=== PATIENT | female | born 1990 | race Caucasian/White ===

== ENCOUNTER → 2016-10-22 | Outpatient (CLI) | payer OTHER ==
[~2016-10-22] MED LIST: DICL75TA PO; HYDR25T PO; MEDR1VL IM; METH-107 PO; PERCOCET PO; PSEUDOGEST PO; TIZA4CAP3 PO; TYLE325T5 PO; [UNRECOGNIZED DRUG - CODE] PO
[2016-10-22 10:18] LABS: INR 0.99
[2016-10-22 10:26] LABS: MEAN CORPUSCULAR HEMOGLOBIN 30.7 pg (27.0-33.0); MEAN CORPUSCULAR HGB CONC 33.1 g/dl (32.0-36.5); MEAN CORPUSCULAR VOLUME 92.6 fl (80.0-96.0); RED CELL DISTRIBUTION WIDTH 13.2 % (11.5-14.5); WHITE BLOOD COUNT 5.6 K/mm3 (4.0-10.0)
[2016-10-22 10:28] LABS: ALBUMIN 4.2 GM/DL (3.2-5.2); ALBUMIN/GLOBULIN RATIO 1.27 (1.00-1.93); ALKALINE PHOSPHATASE 51 U/L (45-117); ALT/SGPT 16 U/L (12-78); ANION GAP 6 MEQ/L (8-16); AST/SGOT 12 U/L (15-37); BILIRUBIN,DIRECT 0.2 MG/DL (0.0-0.2); BILIRUBIN,TOTAL 0.7 MG/DL (0.2-1.0); BLOOD UREA NITROGEN 15 MG/DL (7-18); CALCIUM LEVEL 9.6 MG/DL (8.5-10.1); CARBON DIOXIDE LEVEL 27 MEQ/L (21-32); CHLORIDE LEVEL 106 MEQ/L (98-107); CREATININE FOR GFR 0.71 MG/DL (0.55-1.02); GLOMERULAR FILTRATION RATE > 60.0 (>60); GLUCOSE, FASTING 121 MG/DL (70-105); POTASSIUM SERUM 4.7 MEQ/L (3.5-5.1); SODIUM LEVEL 139 MEQ/L (136-145); TOTAL PROTEIN 7.5 GM/DL (6.4-8.2)
== END ==
LOC: M LAB 08:58
PROVIDERS: ATTEND Family Medicine
DX: R23.8 Other skin changes (principal); R42 Dizziness and giddiness

== ENCOUNTER 2016-11-06 21:33 | Emergency (ER) | payer OTHER, MEDICAID ==
[~2016-11-06] VITALS: Ht 167.6 cm; Wt 52.2 kg
[2016-11-06 21:35] VITALS: BP 132/79
[2016-11-06] MEDS ORDERED: GENTAMICIN 0.3% OPHTH SOL 5 ML BTL OS ONE (22:30)
== END 2016-11-06 22:46 | disposition home or self-care (01) ==
LOC: M ED 22:42
DX: H10.9 Unspecified conjunctivitis (principal); Z87.891 Personal history of nicotine dependence

== ENCOUNTER → 2017-02-05 | Outpatient (REF) | payer OTHER, MEDICAID ==
[~2017-02-05] MED LIST changes: +BUSP1TAB PO; +HYDR-3363 PO; -HYDR25T PO; -METH-107 PO; +METH1TAB40 PO; +NORCOTAB PO; +ROBA500T PO
== END ==
LOC: M SFHCPLAZ 17:57
PROVIDERS: ATTEND Family Medicine
DX: R30.0 Dysuria (principal)

== ENCOUNTER 2017-03-05 08:57 | Emergency (ER) | payer MEDICAID, OTHER ==
[~2017-03-05] VITALS: Ht 167.6 cm; Wt 114.0 kg
[~2017-03-05 08:57] MED LIST changes: -BUSP1TAB PO; -NORCOTAB PO; -ROBA500T PO
[2017-03-05 08:58] VITALS: BP 112/77
[2017-03-05] MEDS ORDERED: BUSP1TAB PO (09:05)
[2017-03-05] MEDS ORDERED: KETOROLAC 60 MG/2 ML VIAL (J1885) IM ONE (09:30)
[2017-03-05] MEDS ORDERED: predniSONE 20 MG TAB PO ONE (09:30)
[2017-03-05] MEDS ORDERED: NORCOTAB PO (09:33)
[2017-03-05] MEDS ORDERED: ROBA500T PO (09:33)
== END 2017-03-05 09:57 | disposition home or self-care (01) ==
LOC: M ED 08:57
DX: M54.17 Radiculopathy, lumbosacral region (principal); M54.41 Lumbago with sciatica, right side; M51.36 Other intervertebral disc degeneration, lumbar region; F41.9 Anxiety disorder, unspecified; Z79.899 Other long term (current) drug therapy
CPT/HCPCS: 96372; 99282; J1885

== ENCOUNTER → 2017-03-25 | Outpatient (CLI) | payer OTHER ==
[~2017-03-25] MED LIST changes: +BUSP1TAB PO; +NORCOTAB PO; +ROBA500T PO
[2017-03-25 18:29] LABS: ANION GAP 7 MEQ/L (8-16); BLOOD UREA NITROGEN 13 MG/DL (7-18); CALCIUM LEVEL 9.8 MG/DL (8.5-10.1); CARBON DIOXIDE LEVEL 27 MEQ/L (21-32); CHLORIDE LEVEL 107 MEQ/L (98-107); CREATININE FOR GFR 0.82 MG/DL (0.55-1.02); GLOMERULAR FILTRATION RATE > 60.0 (>60); GLUCOSE, FASTING 88 MG/DL (70-105); POTASSIUM SERUM 4.3 MEQ/L (3.5-5.1); SODIUM LEVEL 141 MEQ/L (136-145)
[2017-03-25 19:00] LABS: BASO # 0.1 K/mm3 (0.0-0.2); BASO % 0.7 % (0.0-1.0); EOS # 0.1 K/mm3 (0.0-0.50); EOS % 0.9 % (0.0-3.0); LARGE UNSTAINED CELL # 0.1 K/mm3 (0.0-0.4); LARGE UNSTAINED CELL % 1.6 % (0.0-4.0); LYMPH % 24.1 % (24.0-44.0); MEAN CORPUSCULAR HEMOGLOBIN 31.7 pg (27.0-33.0); MEAN CORPUSCULAR HGB CONC 34.2 g/dl (32.0-36.5); MEAN CORPUSCULAR VOLUME 92.8 fl (80.0-96.0); MONO # 0.3 K/mm3 (0.0-0.8); MONO % 4.4 % (0.0-5.0); NEUTROPHILS # 5.2 K/mm3 (1.8-7.7); NEUTROPHILS % 68.2 % (36.0-66.0); PLATELET COUNT, AUTOMATED 141 k/mm3 (150-450); RED CELL DISTRIBUTION WIDTH 13.5 % (11.5-14.5); WHITE BLOOD COUNT 7.6 K/mm3 (4.0-10.0)
--- NOTE | 2017-03-26 14:57 | REP ---
CT ABDOMEN AND PELVIS WITHOUT IV CONTRAST: CT abdomen and pelvis performed without oral or IV contrast. Sagittal and coronal reconstruction images are performed. Comparison made with prior studies from 2015. Visualized lung bases are clear. The liver, spleen, adrenals, pancreas, and kidneys are unremarkable in appearance. No renal or ureteral calculus is seen and there is no hydroureteronephrosis. Patient has had a prior cholecystectomy. There is no definite biliary dilatation. There is no abdominal aortic aneurysm. There is no adenopathy. I see no free air or free fluid. I see no bowel wall thickening. There is no evidence of appendicitis. Patient has had a prior hysterectomy. Urinary bladder is not distended and not evaluated. There does appear to be a rounded somewhat cystic structure in the right adnexal region which may represent a right ovarian cyst. Maximum diameter is 4.5 cm. IMPRESSION: No renal or ureteral calculus and no hydroureteronephrosis. No evidence of appendicitis. No evidence of free air or free fluid. Possible right ovarian cyst with a maximum diameter of 4.5 cm. This could be further evaluated with a pelvic ultrasound. Signed by Edgar Kilpatrick MD 03/26/2017 04:01 P
== END ==
LOC: M LAB 15:49
PROVIDERS: ATTEND Student in an Organized Health Care Education/Training Program
DX: R10.9 Unspecified abdominal pain (principal); R82.90 Unspecified abnormal findings in urine

== ENCOUNTER 2017-09-19 03:45 | Emergency (ER) | payer OTHER, MEDICAID, SELFPAY | END 2017-09-19 08:02 | disposition left against medical advice (07) | LOC: M ED 03:45 | DX: Z53.29 Procedure and treatment not carried out because of patient's decision for other reasons (principal) ==

== ENCOUNTER → 2018-02-16 | Outpatient (REF) | payer OTHER ==
[2018-02-16 18:49] LABS: HEMATOCRIT 40.2 % (36.0-47.0); HEMOGLOBIN 13.3 g/dl (12.0-15.5); MEAN CORPUSCULAR HEMOGLOBIN 30.6 pg (27.0-33.0); MEAN CORPUSCULAR HGB CONC 33.1 g/dl (32.0-36.5); MEAN CORPUSCULAR VOLUME 92.4 fl (80.0-96.0); PLATELET COUNT, AUTOMATED 178 10^3/uL (150-450); RED BLOOD COUNT 4.35 10^6/uL (4.00-5.40); RED CELL DISTRIBUTION WIDTH 13.5 % (11.5-14.5); WHITE BLOOD COUNT 7.5 10^3/uL (4.0-10.0)
== END ==
LOC: M SFHCPLAZ 15:53
DX: R06.02 Shortness of breath (principal)
CPT/HCPCS: 85027

== ENCOUNTER → 2018-05-11 | Outpatient (REF) | payer OTHER | LOC: M SFHCPLAZ 17:24 | DX: N39.0 Urinary tract infection, site not specified (principal) | CPT/HCPCS: 87186 ==

== ENCOUNTER → 2018-06-09 | Outpatient (CLI) | payer OTHER | LOC: M WHC 08:30 | DX: R10.2 Pelvic and perineal pain (principal) | CPT/HCPCS: 76830 ==

== ENCOUNTER 2018-09-30 09:28 | Day surgery (SDC) | payer OTHER ==
[~2018-09-30] VITALS: Ht 167.6 cm; Wt 58.2 kg
[~2018-09-30 09:28] MED LIST changes: +ALLE1TAB PO; +CITA-231 PO; +TIZA4CAP PO; -TIZA4CAP3 PO; -[UNRECOGNIZED DRUG - CODE] PO
[2018-09-30] MEDS ORDERED: MIDAZOLAM INJ 2 MG/2 ML VIAL (J2250) As Ordered ONE (09:56)
[2018-09-30] MEDS ORDERED: ROCURONIUM BROMIDE 50 MG/5 ML VIAL As Ordered ONE (09:56)
[2018-09-30] MEDS ORDERED: fentaNYL 100 MCG/2 ML INJECTION (J3010) As Ordered ONE ×2 (09:56→11:39)
[2018-09-30] MEDS ORDERED: LIDOCAINE 2% INJ 100 MG/5 ML SDV (FOR ANES.) As Ordered ONE (09:56)
[2018-09-30] MEDS ORDERED: PROPOFOL 200 MG/20 ML VIAL As Ordered ONE (09:56)
[2018-09-30 10:11] LABS: HEMOGLOBIN 13.6 g/dl (12.0-15.5); MEAN CORPUSCULAR HEMOGLOBIN 30.9 pg (27.0-33.0); MEAN CORPUSCULAR HGB CONC 32.4 g/dl (32.0-36.5); MEAN CORPUSCULAR VOLUME 95.5 fl (80.0-96.0); PLATELET COUNT, AUTOMATED 176 10^3/uL (150-450)
[2018-09-30] MEDS ORDERED: LR 1,000 ML IV ONE (10:15)
[2018-09-30] MEDS ORDERED: BUPIVACAINE HCL 0.25% 30 ML VIAL As Ordered ONE (10:45)
[2018-09-30] MEDS ORDERED: PERC5TAB12 PO (10:50)
[2018-09-30] MEDS ORDERED: IBUP80TA PO (10:51)
[2018-09-30] MEDS ORDERED: dexameTHASONE 4 MG/ML 1ML VIAL (J1100) As Ordered ONE (11:10)
[2018-09-30] MEDS ORDERED: METOCLOPRAMIDE INJ 10MG/2ML VIAL (J2765) As Ordered ONE (11:36)
[2018-09-30] MEDS ORDERED: ONDANSETRON 4MG/2ML VIAL (J2405) As Ordered ONE (11:37)
[2018-09-30] MEDS ORDERED: KETOROLAC 60 MG/2 ML VIAL (J1885) As Ordered ONE (11:37)
[2018-09-30] MEDS ORDERED: SUGAMMADEX SODIUM 500 MG/5 ML VIAL (BRIDION) As Ordered ONE (11:41)
[2018-09-30] MEDS ORDERED: MEPERIDINE INJ 25 MG/ML VIAL (J2175) As Ordered ONE (12:14)
[2018-09-30] MEDS ORDERED: PERCOCET 5MG/325MG TAB PO PRN (12:15)
[2018-09-30] MEDS ORDERED: LR 1,000 ML IV SCH (12:15)
[2018-09-30] MEDS ORDERED: ONDANSETRON 4MG/2ML VIAL (J2405) IV PRN (12:15)
[2018-09-30] MEDS ORDERED: fentaNYL 100 MCG/2 ML INJECTION (J3010) IV PRN (12:15)
[2018-09-30] MEDS ORDERED: NORCO, ANEXSIA 5/325MG TABLET (HYDROcodone/ACETAMINOPHEN) PO PRN (12:15)
[2018-09-30] MEDS ORDERED: MEPERIDINE INJ 25 MG/ML VIAL (J2175) IV PRN (12:30)
[2018-09-30 13:02] VITALS: BP 109/59
--- NOTE | 2018-09-30 15:21 | RO ---
DATE OF PROCEDURE: 09/30/2018 PREPROCEDURE DIAGNOSIS: Pelvic pain. History of ovarian cysts. POSTPROCEDURE DIAGNOSIS: Pelvic pain. History of ovarian cysts. PROCEDURE: Laparoscopic right salpingo-oophorectomy. SURGEON: Thomas Schilling MD AQUATICS DIRECTOR: ANESTHESIA: General endotracheal. ESTIMATED BLOOD LOSS: Minimal. FINDINGS: Normal appearing ovaries, both right and left. Surgical absent uterus from prior hysterectomy. Normal pelvis. No evidence of endometriosis. DESCRIPTION OF PROCEDURE: The patient was taken to the operating room where general endotracheal anesthesia was induced. She was prepped and draped in a sterile fashion in the dorsal lithotomy position. A sponge stick was placed in the vagina to use as a manipulator. A Wasserman catheter was placed. A periumbilical incision was made with a scalpel. A Veress needle was placed through the incision while tenting up on the skin of the abdomen. Intraabdominal location of the Veress needle was assessed using a saline filled syringe. Pneumoperitoneum was created. Veress needle was removed. An 11 mm trocar using Visiport was inserted through this incision. Visualization of the pelvis with 11 mm scope revealed the findings noted above. Two 5 mm suprapubic ports were placed under direct visualization. The right ovary was elevated. The right ovary was noted to be away from the right ureter. A LigaSure device was used to coagulate and incise the right IP ligament thus freeing the ovary. The ovary was placed in Endo Catch bag and removed through the umbilical incision. The pneumoperitoneum was released. The fascia and the umbilical incision was closed with interrupted suture of #0 Vicryl. Skin was closed with #4-0 Monocryl subcuticular sutures. Sponge, instrument and needle counts were correct.
== END 2018-09-30 13:25 | disposition home or self-care (01) ==
LOC: M SDC 09:28
PROVIDERS: ATTEND Specialist
DX: N83.11 Corpus luteum cyst of right ovary (principal); J45.909 Unspecified asthma, uncomplicated; Z79.899 Other long term (current) drug therapy; F41.9 Anxiety disorder, unspecified
CPT/HCPCS: 36415; 58661; 85027; 88307; J1100; J1885; J2175; J2250; J2405; J2765; J3010

== ENCOUNTER → 2018-11-18 | Outpatient (REF) | payer OTHER, MEDICAID ==
[~2018-11-18] MED LIST changes: -ALLE1TAB PO; -CITA-231 PO; +CITA40TA6 PO; +HYDR-3715 PO; +IBUP80TA PO; -NORCOTAB PO; +PERC5TAB12 PO; +[UNRECOGNIZED DRUG - CODE] PO
== END ==
LOC: M LAB REF 16:14
PROVIDERS: ATTEND Physician Assistant
DX: R30.0 Dysuria (principal)

== ENCOUNTER 2019-05-02 07:50 | Emergency (ER) | payer MEDICAID, OTHER ==
[~2019-05-02] VITALS: Ht 167.6 cm; Wt 56.4 kg
[2019-05-02 07:51] VITALS: BP 129/73
[2019-05-02] MEDS ORDERED: OSEL75CA PO (08:21)
== END 2019-05-02 09:15 | disposition home or self-care (01) ==
LOC: M ED 07:50
DX: J11.1 Influenza due to unidentified influenza virus with other respiratory manifestations (principal)

== ENCOUNTER → 2019-11-21 | Outpatient (REF) | payer OTHER ==
[~2019-11-21] MED LIST changes: +OSEL75CA PO
== END ==
LOC: M SFHCPLAZ 11:33
PROVIDERS: ATTEND Family Medicine
DX: R30.0 Dysuria (principal)

== ENCOUNTER 2019-12-08 13:03 | Emergency (ER) | payer OTHER ==
[~2019-12-08] VITALS: Ht 167.6 cm; Wt 57.6 kg
[2019-12-08 13:04] VITALS: BP 123/84
[2019-12-08] MEDS ORDERED: APAP325T4 PO (13:11)
[2019-12-08] MEDS ORDERED: LEVOTAB10 PO (13:11)
[2019-12-08] MEDS ORDERED: MORPHINE 2 MG/ML 1ML VIAL (J2270) IV ONE (13:30)
[2019-12-08] MEDS ORDERED: NS 1,000 ML IV ONE (13:30)
[2019-12-08] MEDS ORDERED: ONDANSETRON 4MG/2ML VIAL IV ONE (13:30)
[2019-12-08 14:03] LABS: BASO # 0.1 10^3/uL (0.0-0.2); EOS % 0.6 % (0.0-3.0); HEMATOCRIT 43.3 % (36.0-47.0); HEMOGLOBIN 14.8 g/dl (12.0-15.5); LYMPH # 1.8 10^3/uL (1.5-5.0); LYMPH % 35.3 % (24.0-44.0); MEAN CORPUSCULAR HEMOGLOBIN 31.2 pg (27.0-33.0); MEAN CORPUSCULAR HGB CONC 34.2 g/dl (32.0-36.5); MEAN CORPUSCULAR VOLUME 91.4 fl (80.0-96.0); MONO # 0.3 10^3/uL (0.0-0.8); MONO % 6.6 % (0.0-5.0); NEUTROPHILS # 2.9 10^3/uL (1.5-8.5); NEUTROPHILS % 56.3 % (36.0-66.0); PLATELET COUNT, AUTOMATED 178 10^3/uL (150-450); RED BLOOD COUNT 4.74 10^6/uL (4.00-5.40); WHITE BLOOD COUNT 5.2 10^3/uL (4.0-10.0)
[2019-12-08] MEDS: GASTROGRAFIN SOLUTION 30ML PO SCH ×2 (14:20→14:51)
[2019-12-08 14:24] LABS: ALBUMIN 4.4 GM/DL (3.2-5.2); ALT/SGPT 19 U/L (12-78); BILIRUBIN,DIRECT 0.3 MG/DL (0.0-0.2); BILIRUBIN,TOTAL 0.9 MG/DL (0.2-1.0); BLOOD UREA NITROGEN 10 MG/DL (7-18); CALCIUM LEVEL 9.8 MG/DL (8.5-10.1); CARBON DIOXIDE LEVEL 26 MEQ/L (21-32); CHLORIDE LEVEL 106 MEQ/L (98-107); CREATININE FOR GFR 0.87 MG/DL (0.55-1.30); GLOMERULAR FILTRATION RATE > 60.0 (>60); GLUCOSE, FASTING 100 MG/DL (70-100); POTASSIUM SERUM 3.7 MEQ/L (3.5-5.1); SODIUM LEVEL 138 MEQ/L (136-145); TOTAL PROTEIN 8.2 GM/DL (6.4-8.2)
[2019-12-08] MEDS ORDERED: ISOVUE-370 76% 100ML VIAL As Ordered ONE (15:38)
[2019-12-08] MEDS ORDERED: METOCLOPRAMIDE INJ 10MG/2ML VIAL (J2765 PER 1) IV ONE (17:00)
--- NOTE | 2019-12-08 17:38 | REP ---
CT ABDOMEN AND PELVIS WITH ORAL AND IV CONTRAST: TECHNIQUE: Axial contrast enhanced images from the lung bases to the pubic symphysis using 100 mL Isovue-370 intravenous contrast material with multiplanar reformations. Visualized lung bases are clear. The liver demonstrates no mass. The patient has had a prior cholecystectomy. There is suspected prominence of the common hepatic and common bile ducts. Spleen is normal in size with no intrinsic abnormality. The adrenal glands are normal. The pancreas is unremarkable in appearance with no mass. Kidneys are unremarkable with no hydronephrosis or mass. There is no abdominal aortic aneurysm. There is no adenopathy. There is no free air or free fluid. There is no bowel wall thickening. The appendix is normal. Patient has had a hysterectomy. No pelvic mass is seen. Urinary bladder is minimally distended and grossly unremarkable. IMPRESSION: No acute findings. Appendix is normal. Patient is status post cholecystectomy and hysterectomy. No evidence of bowel obstruction, bowel inflammation, free air or free fluid. Electronically Signed by Edgar Kilpatrick MD 12/11/2019 09:13 A
[2019-12-08] MEDS ORDERED: ONDA4TAB6 PO (17:44)
== END 2019-12-08 17:54 | disposition home or self-care (01) ==
LOC: M ED 13:03
DX: R10.9 Unspecified abdominal pain (principal); R11.2 Nausea with vomiting, unspecified
CPT/HCPCS: 74177; 80048; 80076; 81001; 85025; 96361; 96374; 96375; 99283; J2270; J2405; J2765; Q9963; Q9967

== ENCOUNTER 2019-12-29 14:47 | Emergency (ER) | payer OTHER ==
[~2019-12-29] VITALS: Ht 167.6 cm; Wt 57.9 kg
[~2019-12-29 14:47] MED LIST changes: +APAP325T4 PO; +LEVOTAB10 PO; +METH-1164 PO; -METH1TAB40 PO; +ONDA4TAB6 PO
[2019-12-29] MEDS ORDERED: NS 1,000 ML IV ONE (15:45)
[2019-12-29] MEDS ORDERED: ONDANSETRON 4MG/2ML VIAL IV ONE (15:45)
[2019-12-29 16:45] LABS: BASO # 0.1 10^3/uL (0.0-0.2); BASO % 0.8 % (0.0-1.0); EOS % 0.4 % (0.0-3.0); HEMATOCRIT 38.9 % (36.0-47.0); HEMOGLOBIN 12.9 g/dl (12.0-15.5); LYMPH # 2.3 10^3/uL (1.5-5.0); LYMPH % 31.1 % (24.0-44.0); MEAN CORPUSCULAR HEMOGLOBIN 30.6 pg (27.0-33.0); MEAN CORPUSCULAR HGB CONC 33.2 g/dl (32.0-36.5); MEAN CORPUSCULAR VOLUME 92.4 fl (80.0-96.0); MONO # 0.5 10^3/uL (0.0-0.8); MONO % 7.3 % (0.0-5.0); NEUTROPHILS # 4.4 10^3/uL (1.5-8.5); NEUTROPHILS % 60.1 % (36.0-66.0); PLATELET COUNT, AUTOMATED 149 10^3/uL (150-450); RED BLOOD COUNT 4.21 10^6/uL (4.00-5.40); WHITE BLOOD COUNT 7.3 10^3/uL (4.0-10.0)
[2019-12-29] MEDS: GASTROGRAFIN SOLUTION 30ML PO SCH ×2 (16:49→17:25)
[2019-12-29 17:11] LABS: ALBUMIN 4.6 GM/DL (3.2-5.2); BILIRUBIN,DIRECT 0.2 MG/DL (0.0-0.2); BILIRUBIN,TOTAL 0.5 MG/DL (0.2-1.0); TOTAL PROTEIN 8.1 GM/DL (6.4-8.2)
[2019-12-29] MEDS ORDERED: ISOVUE-370 76% 100ML VIAL As Ordered ONE (17:38)
[2019-12-29 17:59] VITALS: BP 111/74
--- NOTE | 2019-12-29 18:22 | REPVR ---
PROCEDURE INFORMATION: Exam: CT Abdomen And Pelvis With Contrast Exam date and time: 12/29/2019 5:42 PM Age: 29 years old Clinical indication: Abdominal pain; Localized; Left lower quadrant (llq); Additional info: Llq pain with rectal bleeding R/O infectious process TECHNIQUE: Imaging protocol: Computed tomography of the abdomen and pelvis with intravenous contrast. Radiation optimization: All CT scans at this facility use at least one of these dose optimization techniques: automated exposure control; mA and/or kV adjustment per patient size (includes targeted exams where dose is matched to clinical indication); or iterative reconstruction. Contrast material: ISOVUE 370; Contrast volume: 100 ml; Contrast route: IV; COMPARISON: CT ABD/PEL W/IV ORAL CONTRAS 12/08/2019 3:38 PM FINDINGS: Liver: Normal. No mass. Gallbladder and bile ducts: Cholecystectomy clips. Pancreas: Normal. No ductal dilation. Spleen: Normal. No splenomegaly. Adrenals: Normal. No mass. Kidneys and ureters: Normal. No hydronephrosis. Stomach and bowel: Unremarkable. No obstruction. No mucosal thickening. Appendix: No evidence of appendicitis. Intraperitoneal space: Unremarkable. No free air. No significant fluid collection. Vasculature: Unremarkable. No abdominal aortic aneurysm. Lymph nodes: Unremarkable. No enlarged lymph nodes. Bladder: Unremarkable as visualized. Reproductive: 2 x 1.2 cm left ovarian cyst. Bones/joints: Unremarkable. No acute fracture. Soft tissues: Unremarkable. IMPRESSION: No acute abdominal or pelvic abnormality. Electronically signed by: Smith [place] On 12/29/2019 18:22:47 PM
== END 2019-12-29 18:42 | disposition home or self-care (01) ==
LOC: M ED 14:47
DX: K62.5 Hemorrhage of anus and rectum (principal); N83.202 Unspecified ovarian cyst, left side; K60.2 Anal fissure, unspecified
CPT/HCPCS: 74177; 80047; 80076; 83690; 85025; 96361; 96374; 99284; J2405; Q9963; Q9967

== ENCOUNTER → 2020-04-12 | Outpatient (CLI) | payer OTHER ==
[~2020-04-12] MED LIST changes: -METH-1164 PO; +METH1TAB40 PO
[2020-04-12 12:36] LABS: HEMOGLOBIN 13.6 g/dl (12.0-15.5); MEAN CORPUSCULAR HEMOGLOBIN 30.5 pg (27.0-33.0); MEAN CORPUSCULAR HGB CONC 32.4 g/dl (32.0-36.5); MEAN CORPUSCULAR VOLUME 94.2 fl (80.0-96.0); PLATELET COUNT, AUTOMATED 170 10^3/uL (150-450); RED BLOOD COUNT 4.46 10^6/uL (4.00-5.40); WHITE BLOOD COUNT 6.7 10^3/uL (4.0-10.0)
[2020-04-12 13:12] LABS: ALBUMIN 4.2 GM/DL (3.2-5.2); ALT/SGPT 16 U/L (12-78); BILIRUBIN,TOTAL 0.4 MG/DL (0.2-1.0); BLOOD UREA NITROGEN 10 MG/DL (7-18); CALCIUM LEVEL 10.3 MG/DL (8.5-10.1); CARBON DIOXIDE LEVEL 27 MEQ/L (21-32); CHLORIDE LEVEL 108 MEQ/L (98-107); CREATININE FOR GFR 0.77 MG/DL (0.55-1.30); GLOMERULAR FILTRATION RATE > 60.0 (>60); GLUCOSE, FASTING 85 MG/DL (70-100); SODIUM LEVEL 140 MEQ/L (136-145); TOTAL PROTEIN 7.6 GM/DL (6.4-8.2)
== END ==
LOC: M LAB 11:25
PROVIDERS: ATTEND Student in an Organized Health Care Education/Training Program
DX: R11.0 Nausea (principal)

== ENCOUNTER → 2020-06-28 | Outpatient (REF) | payer OTHER | LOC: M SFHCPLAZ 16:43 | PROVIDERS: ATTEND Student in an Organized Health Care Education/Training Program | DX: Z12.4 Encounter for screening for malignant neoplasm of cervix (principal); Z11.3 Encounter for screening for infections with a predominantly sexual mode of transmission ==

== ENCOUNTER → 2020-07-01 | Outpatient (CLI) | payer OTHER ==
[2020-07-01 14:34] LABS: HIV 1&2 SCREEN CENTAUR NEGATIVE (NEGATIVE)
== END ==
LOC: M LAB 11:54
PROVIDERS: ATTEND Student in an Organized Health Care Education/Training Program
DX: Z11.3 Encounter for screening for infections with a predominantly sexual mode of transmission (principal); Z11.4 Encounter for screening for human immunodeficiency virus [HIV]; Z11.8 Encounter for screening for other infectious and parasitic diseases

== ENCOUNTER → 2020-09-13 | Outpatient (REF) ==
[~2020-09-13] MED LIST changes: +BUSP5TA; +CETI-24; +FLUO20CA22; +METH-1164 PO; -METH1TAB40 PO
== END ==
LOC: M LABSMTC 10:07
PROVIDERS: ATTEND Family Medicine
DX: Z11.52 Encounter for screening for COVID-19 (principal)

== ENCOUNTER 2020-09-18 23:58 | Emergency (ER) | payer OTHER ==
[~2020-09-18] VITALS: Ht 167.6 cm; Wt 57.2 kg
[~2020-09-18 23:58] MED LIST changes: -BUSP5TA; -CETI-24; -FLUO20CA22
--- OUTSIDE RECORDS SUMMARY | 2020-09-19 00:07 | CCD ---
Author Author [facility] Organization [facility] Address Unknown Phone Unavailable Care Team Providers Care Arabic Teacher Name Role Phone Evelyn Augustine Unavailable PROBLEMS Type Condition ICD9-CM Code QCE30-SE Code Onset Dates Condition S tatus W/U Status Risk SNOMED Code Notes Problem Anxiety, generalized F41.1 Active confirmed 61299593 Problem Moderate major depression F32.1 Active confirmed 554236 Problem Internal hemorrhoid K64.8 Active confirmed 15623650 Problem Generalized anxiety disorder F41.1 Active confirme d 58618776 Problem Seasonal allergic rhinitis, unspecified allergic rhinitis trigger J30.2 Active confirmed 785372071 Problem 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 Acti ve confirmed 18117161 Problem Vivid dream F51.8 Active confirmed 13553185 9 Problem Calculus of kidney N20.0 Active confirmed 9 3996387 Problem Mild intermittent reactive airway disease without comp lication J45.20 Active confirmed 406279717 Problem Migraine G43.909 Active confirmed 84087836 Problem Urinary tract infection, site not specified N39.0 Active confirmed 56758369 Problem Anal fissure K60.2 Active confirmed 4934065 6 Problem 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 Active confirmed 865479302 Problem Anxiety F41.9 Active confirmed 16065020 Problem Tonsillith J35.8 Active confirmed 3977014 Problem Imbalance R26.89 Active confirmed 746224176 Problem Anxiety disorder, unspecified F41.9 Active confirm ed 103710614 Problem Other chronic pain G89.29 Active confirmed 8 2268637 Problem Low back pain M54.5 Active confirmed 219778 009 Problem Severe major depression F32.2 Active confirmed 536910081 Problem Allergic rhinitis J30.9 Active confirmed 61 646154 Problem Health care maintenance Z00.00 Active confirmed 736996803 Problem Vaginal odor N89.8 Active confirmed 9484887 06 Problem Anxiety with depression F41.8 Active confirmed 978135609 ALLERGIES Allergen (clinical drug ingredient) Drug/Non Drug Allergy do cumented on EMR Reaction Allergy Type Onset Date Status Seasonal congestion, rhinorrhea Non Drug Allergy Active ENCOUNTERS from 1991 to 2020-08-29 Encounter Location Date Provider [place] [address] 30 Jul, 2020 Evelyn Augustine IMMUNIZATIONS Vaccine Route Administration Date Status TDAP 0.5mL (Boostrix) IM Intramuscular Apr 18, 2018 Administe red Influenza (6mo & up) Fluzone IM Intramuscular May 11, 2018 Ad ministered Influenza (6mo & up) Fluzone IM Intramuscular Aug 04, 2017 Ad ministered Influenza (6mo & up) Fluzone IM Intramuscular Apr 29, 2016 Ad ministered Influenza (6mo & up) Fluzone Unknown Sep 05, 2014 Oth ers SOCIAL HISTORY Tobacco Use: Social History Observation Description Date Details (start date - stop date) Never Smoker Sex Assigned At : Social History Observation Description Sex Assigned At Unknown Education: Question Answer Notes Level of Education: High School Audit Question Answer Notes Interpretation: Alcohol Education Total Score: 1 Sexual Hx: Question Answer Notes Had sex in the last 12 months (vaginal, oral, or anal)? Yes Have you ever had an STD? No with Men only Use protection? No Drug and Alcohol Question Answer Notes Interpretation: No problems reported Total Score: 0 Alcohol Screening: Question Answer Notes Did you have a drink containing alcohol in the past year? No Points 0 Interpretation Negative BMI Care Goal Follow-Up Question Answer Notes Below Normal BMI Follow-Up Dietary education for weight gain Tobacco Use: Question Answer Notes Are you a: never smoker never smoker REASON FOR REFERRAL No Information VITAL SIGNS No information MEDICATIONS Medication SIG (Take, Route, Frequency, Duration) Notes Start Da te End Date Status Fluoxetine HCl 20 MG 1 capsule Orally Once a day for 30 day(s) Jul, Active Fluticasone Propionate 50 MCG/ACT 1 spray in each nost ril Nasally Once a day for 30 day(s) Not-Taking Ventolin HFA 108 (90 Base) MCG/ACT 2 puffs as needed I nhalation four times daily as needed for 30 day(s) Jul, Not-Taki ng Cetirizine HCl 10 MG 1 tablet Orally Once a day for 30 day(s) Active BusPIRone HCl 5 MG 1 tablet Orally twice daily for 30 Days Jun, Active Levocetirizine Dihydrochloride 5 MG 1 tablet in the ev ening Orally Once a day for 30 day(s) Jan, Not-Taking Fluoxetine HCl 10 MG 1 capsule Orally Once a day for 30 day(s) Jun, Active PROCEDURES No Information RESULTS No Results REASON FOR VISIT Follow up appt MEDICAL (GENERAL) HISTORY Type Description Date Medical History spinal stenosis sees Neuro Medical History migraine headache Medical History anxiety Medical History ovarian cyst- ruptured Medical History ADHD Medical History Depression Medical History Severe dysmeorrhea Medical History allergic rhinitis Medical History Cardiac Murmur Surgical History c section Surgical History tubal ligation 2011 Surgical History cholecystectomy with complication of bow el perforation 2011 Surgical History gall stone removal from intestines 2011 Surgical History hysterectomy laps assisted 10/25/2015 Surgical History right ovary removed by Dr. Jane 019 Hospitalization History Gallbladder x 2 weeks 05/2012 Hospitalization History Hyster- still has ovaries 10/25/15 Goals Section No Information Health Concerns No Information MEDICAL EQUIPMENT No Information MENTAL STATUS No Information FUNCTIONAL STATUS No Information ASSESSMENTS No Information PLAN OF TREATMENT Medication Medication Name Sig Start Date Stop Date Fluoxetine HCl 20 MG 1 capsule Orally Once a day for 30 day(s) 1 Jul, BusPIRone HCl 5 MG 1 tablet Orally twice daily for 30 Days 2019 Cetirizine HCl 10 MG 1 tablet Orally Once a day for 30 day(s) Insurance Providers Payer Name Payer Address Payer Phone Insured Name Patient Relati onship to Insured Coverage Start Date Coverage End Date [facility] [address] [facility] [phone] LILLIAM CASTANO
--- OUTSIDE RECORDS SUMMARY | 2020-09-19 00:08 | CCD ---
Author Author [facility] Organization [facility] Address Unknown Phone Unavailable Care Team Providers Care Cost Estimating Engineer Name Role Phone Evelyn Augustine Unavailable PROBLEMS Type Condition ICD9-CM Code ELL13-DY Code Onset Dates Condition S tatus SNOMED Code Notes Problem Imbalance R26.89 Active 524453400 Problem Low back pain M54.5 Active 009502594 Problem Moderate major depression F32.1 Active 122853 Problem Severe major depression F32.2 Active 30118862 0 Problem Generalized anxiety disorder F41.1 Active 218 67328 Problem Anxiety, generalized F41.1 Active 40849489 Problem 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 Acti ve 02828250 Problem Internal hemorrhoid K64.8 Active 60405859 Problem Vivid dream F51.8 Active 945771936 Problem Other chronic pain G89.29 Active 16983586 Problem Tonsillith J35.8 Active 3488419 Problem Health care maintenance Z00.00 Active 90589795 1 Problem Mild intermittent reactive airway disease without comp lication J45.20 Active 239618556 Problem Migraine G43.909 Active 37893649 Problem Vaginal odor N89.8 Active 551204416 Problem Seasonal allergic rhinitis, unspecified allergic rhinitis trigger J30.2 Active 818711783 Problem Calculus of kidney N20.0 Active 95904587 Problem Urinary tract infection, site not specified N39.0 Active 73407260 Problem Anal fissure K60.2 Active 63535187 Problem 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 Active 893112342 Problem Allergic rhinitis J30.9 Active 90058241 ALLERGIES Allergen (clinical drug ingredient) Drug/Non Drug Allergy do cumented on EMR Reaction Allergy Type Onset Date Status Seasonal congestion, rhinorrhea Non Drug Allergy Active ENCOUNTERS from 1991 to 2020-07-08 Encounter Location Date Provider Diagnosis [facility] [place] [facility] [address] [facility] [place] [address] 11 Jun, 2020 Evelyn Fawn IMMUNIZATIONS Vaccine Route Administration Date Status TDAP [...] Education: High School Audit Question Answer Notes Total Score: 1 Interpretation: Alcohol Education Sexual Hx: Question Answer Notes Had sex in the last 12 months (vaginal, oral, or anal)? Yes Have you ever had an STD? No with Men only Use protection? No Drug and Alcohol Question Answer Notes Total Score: 0 Interpretation: No problems reported Alcohol Screening: Question Answer Notes Did you [...] Notes Start Da te End Date Status Fluticasone Propionate 50 MCG/ACT 1 spray in each nost ril Nasally Once a day for 30 day(s) Active Ventolin HFA 108 (90 Base) MCG/ACT 2 puffs as needed I nhalation four times daily as needed for 30 day(s) Jul, Not-Jonathan ng Cetirizine HCl 10 MG 1 tablet Orally Once a day for 30 day(s) Active Levocetirizine Dihydrochloride 5 MG 1 tablet in the ev ening Orally Once a day for 30 day(s) Jan, Active PROCEDURES No Information RESULTS No Results REASON FOR VISIT no showed MEDICAL (GENERAL) HISTORY Type Description Date Medical [...] Information ASSESSMENTS No Information PLAN OF TREATMENT No Information Insurance Providers Payer Name Payer Address Payer Phone Insured Name Patient Relati onship to Insured Coverage Start Date Coverage End Date [facility] COMM[facility] [address] [facility] [phone] LILLIAM CASTANO
--- OUTSIDE RECORDS SUMMARY | 2020-09-19 00:08 | CCD ---
Author Author [facility] Organization [facility] Address Unknown Phone Unavailable Support Name Relationship Address Phone [facility]* Next Of Kin [address] [place] [address] [employer] Next Of Kin [address] [place] [address] [place] [address] [place] [address] [employer] Next Of Kin [address] [place] [address] [place] Next Of Kin [address] [place] [address] RAYMON SHARMA Next Of Kin [address] [place] [address] UE Next Of Kin Unknown Unavailable [employer] Next Of Kin [address] [place] [address] [employer] Next Of Kin [address] [place] [address] [employer] Next Of Kin [address] [place] [address] COLBY Next Of Kin [address] [place] [address] [facility] Next Of Kin [address] [place] [address] WALKER HENRIQUEZ Next Of Kin [address] [place] [address] Walker Henriquez ECON [address] [place] [address] Unavailable Re-disclosure Warning The records that you are about to access may contain information from federally-assisted alcohol or drug abuse programs. If such information is present, then the following federally mandated warning applies: This information has been disclosed to you from records protected by federal confidentiality rules (42 CFR part 2). The federal rules prohibit you from making any further disclosure of this information unless further disclosure is expressly permitted by the written consent of the person to whom it pertains or as otherwise permitted by 42 CFR part 2. A general authorization for the release of medical or other information is NOT sufficient for this purpose. The Federal rules restrict any use of the information to criminally investigate or prosecute any alcohol or drug abuse patient.The records that you are about to access may contain highly sensitive health information, the redisclosure of which is protected by Article 27-F of the [facility] Public Health law. If you continue you may have access to information: Regarding HIV / AIDS; Provided by facilities licensed or operated by the [facility] Office of Mental Health; or Provided by the [facility] Office for People With Developmental Disabilities. If such information is present, then the following [facility] mandated warning applies: This information has been disclosed to you from confidential records which are protected by state law. State law prohibits you from making any further disclosure of this information without the specific written consent of the person to whom it pertains, or as otherwise permitted by law. Any unauthorized further disclosure in violation of state law may result in a fine or correction sentence or both. A general authorization for the release of medical or other information is NOT sufficient authorization for further disc losure. Allergies and Adverse Reactions Type Description Substance Reaction Status Data Source(s ) Seasonal Seasonal Seasonal congestion, rhinorrhea Active e CW1 ([facility]) Seasonal Seasonal Seasonal congestion, rhinorrhea Active e CW1 ([facility]) Family History Family Member Name Family Member Gender Family Member Status Date o f Status Description Data Source(s) Unknown Unknown Problem MEDENT ([facility]) Unknown Unknown Problem MEDENT ([facility]) Unknown Male Problem MEDENT ([facility]) Encounters Encounter Providers Location Date Indications Data Source(s ) Unknown [address] [facility] [place] [address] 08/24/2020 12:00:00 AM EST eCW1 ([facility]) Unknown [address] [facility] [place] [address] 08/22/2020 12:00:00 AM EST [facility]CW1 ([facility]) [place] [address] [facility] [place] [address] 07/09/2020 12:00:00 AM EST eCW1 ([facility]) [place] [address] [facility] [place] [address] 07/05/2020 12:00:00 AM EST eCW1 ([facility]) [place] [address] [facility] [address] 06/28/2020 12:00:00 AM EST eCW1 ([facility]) Outpatient 01/12/2020 05:49:00 AM EDT [facility] [address] [facility] [address] 01/05/2020 12:00:00 AM EDT eCW1 ([facility]) [place] [address] [facility] [place] [address] 12/29/2019 12:00:00 AM EDT eCW1 ([facility]) Outpatient 12/21/2019 05:35:00 AM EDT [facility] [address] [facility] [address] 12/08/2019 12:00:00 AM EDT eCW1 ([facility]) [facility] Resident [address] [place] [address] 11/21/2019 12:00:00 AM EDT eCW1 ([facility]) [facility] [address] [facility] [place] [address] 11/20/2019 12:00:00 AM EDT eCW1 ([facility]) [facility] Resident [address] [place] [address] 10/20/2019 12:00:00 AM EDT eCW1 ([facility]) [facility] [address] [facility] [place] [address] 10/10/2019 12:00:00 AM EDT eCW1 ([facility]) Medications Medication Brand Name Start Date Product Form Dose Route Admi nistrative Instructions Pharmacy Instructions Status Indications Reaction Description Data Source(s) Fluoxetine 20 MG Oral Capsule Fluoxetine HCl 20 MG Fluoxetin e HCl 20 MG 08/12/2020 12:00:00 AM EST 1.0 {capsule} active Fluoxetine HCl 20 MG eCW1 ([facility]) Fluoxetine 20 MG Oral Capsule Fluoxetine HCl 20 MG Fluoxetin e HCl 20 MG 08/12/2020 12:00:00 AM EST 1.0 {capsule} active Fluoxetine HCl 20 MG eCW1 ([facility]) Fluoxetine 10 MG Oral Capsule Fluoxetine HCl 10 MG Fluoxetin e HCl 10 MG 07/18/2020 12:00:00 AM EST 1.0 {capsule} active Fluoxetine HCl 10 MG eCW1 ([facility]) Fluoxetine 10 MG Oral Capsule Fluoxetine HCl 10 MG Fluoxetin e HCl 10 MG 07/18/2020 12:00:00 AM EST 1.0 {capsule} active Fluoxetine HCl 10 MG eCW1 ([facility]) buspirone hydrochloride 5 MG Oral Tablet BusPIRone HCl 5 MG BusPIRone HCl 5 MG 07/18/2020 12:00:00 AM EST 1.0 {tablet} active BusPIRone HCl 5 MG eCW1 ([facility]) Fluoxetine 10 MG Oral Capsule Fluoxetine HCl 10 MG Fluoxetin e HCl 10 MG 07/18/2020 12:00:00 AM EST 1.0 {capsule} active Fluoxetine HCl 10 MG eCW1 ([facility]) buspirone hydrochloride 5 MG Oral Tablet BusPIRone HCl 5 MG BusPIRone HCl 5 MG 07/18/2020 12:00:00 AM EST 1.0 {tablet} active BusPIRone HCl 5 MG eCW1 ([facility]) buspirone hydrochloride 5 MG Oral Tablet BusPIRone HCl 5 MG BusPIRone HCl 5 MG 07/18/2020 12:00:00 AM EST 1.0 {tablet} active BusPIRone HCl 5 MG eCW1 ([facility]) 40 mg 03/30/2020 12:00:00 AM EDT capsule,delayed release (DR/EC) 30 TAKE ONE CAPSULE BY MOUTH EVERY DAY TAKE ONE CAPSULE BY MOUTH EVERY DAY SOLD: 03/30/2020 [facility] 10 mg 02/15/2020 12:00:00 AM EDT tablet 20 TAKE 1 TABLET BY MOUTH EVERY 6 HOURS FOR 5 DAYS TAKE 1 TABLET BY MOUTH EVERY 6 HOURS FOR 5 DAYS SOLD: 02/15/2020 [facility] 4 mg 12/08/2019 12:00:00 AM EDT tablet,disintegrating 1 6 TAKE ONE TABLET BY MOUTH EVERY 6-8 HOURS NEEDED FOR NAUSEA AND VOMITING TAKE ONE TABLET BY MOUTH EVERY 6-8 HOURS NEEDED FOR NAUSEA AND VOMITING SOLD: 12/08/2019 [facility] NITROFURANTOIN, MACROCRYSTALS 25 MG / Ni trofurantoin, Monohydrate 75 MG Oral Capsule Nitrofurantoin Monohyd Macro 100 MG Nitrofurantoin Monohyd Macro 100 MG 11/21/2019 12:00:00 AM EDT active Nitrofurantoin Monohyd Macro 100 MG eCW1 ([facility]) 100 mg 11/21/2019 12:00:00 AM EDT capsule 10 TAKE ONE CAPSULE BY MOUTH TWICE A DAY FOR 5 DAYS TAKE ONE CAPSULE BY MOUTH TWICE A DAY FOR 5 DAYS SOLD: 11/21/2019 [facility] NITROFURANTOIN, MACROCRYSTALS 25 MG / Ni trofurantoin, Monohydrate 75 MG Oral Capsule Nitrofurantoin Monohyd Macro 100 MG Nitrofurantoin Monohyd Macro 100 MG 11/21/2019 12:00:00 AM EDT active 1 capsule at bedtime with food eCW1 ([facility]) levocetirizine dihydrochloride 5 MG Oral Tablet LEVOCETIRIZI NE DIHYDROCHLORIDE 10/10/2019 12:00:00 AM EDT tablet 30 TAKE ONE TABLE T BY MOUTH EVERY EVENING TAKE ONE TABLET BY MOUTH EVERY EVENING SOLD: 10/11/2019 [facility] Insurance Providers Payer name Policy type / Coverage type Policy ID Covered constitution party ID Covered constitution party's relationship to wallace Policy Wallace Plan Information [facility] COMM[facility] [id number] SP [id number] [facility] [id number] SP [id number] [facility] [id number] SP [id number] [facility] O [id number] S [id number] [facility] [id number] SP [id number] [facility] [id number] SP [id number] ANSI-Medicaid [id number] ANSI-Not a Secondary Insurance [id number] ANSI-Medicaid [id number] ANSI-Not a Secondary Insurance [id number] ANSI-Medicaid [id number] ANSI-Medicaid [id number] ANSI-Medicaid [id number] ANSI-Medicaid [id number] ANSI-Not a Secondary Insurance [id number] [facility] Health Maintenance Organization (HMO) [id number] Self [id number] [facility] Health Maintenance Organization (HMO) [id number] Self [id number] ANSI-Not a Secondary Insurance [id number] ANSI-Medicaid [id number] ANSI-Medicaid [id number] ANSI-Medicaid [id number] ANSI-Not a Secondary Insurance [id number] ANSI-Medicaid [id number] ANSI-Not a Secondary Insurance [id number] ANSI-Medicaid [id number] ANSI-Medicaid [id number] ANSI-Medicaid [id number] ANSI-Medicaid [id number] ANSI-Not a Secondary Insurance [id number] ANSI-Medicaid [id number] ANSI-Medicaid [id number] ANSI-Not a Secondary Insurance [id number] ANSI-Not a Secondary Insurance [id number] ANSI-Medicaid [id number] ANSI-Medicaid [id number] ANSI-Medicaid [id number] ANSI-Medicaid [id number] ANSI-Not a Secondary Insurance [id number] ANSI-Medicaid [id number] ANSI-Medicaid [id number] ANSI-Not a Secondary Insurance [id number] ANSI-Not a Secondary Insurance [id number] ANSI-Medicaid [id number] ANSI-Medicaid [id number] ANSI-Medicaid [id number] ANSI-Not a Secondary Insurance [id number] ANSI-Medicaid [id number] ANSI-Medicaid [id number] ANSI-Not a Secondary Insurance [id number] ANSI-Medicaid [id number] ANSI-Medicaid [id number] ANSI-Not a Secondary Insurance [id number] ANSI-Medicaid [id number] ANSI-Not a Secondary Insurance [id number] ANSI-Medicaid [id number] ANSI-Medicaid [id number] ANSI-Not a Secondary Insurance [id number] ANSI-Medicaid [id number] ANSI-Medicaid [id number] ANSI-Medicaid [id number] ANSI-Not a Secondary Insurance [id number] ANSI-Medicaid [id number] [facility] Commercial [id number] Self [id number] [facility] Commercial [id number] Self [id number] ANSI-Not a Secondary Insurance [id number] ANSI-Medicaid [id number] ANSI-Medicaid [id number] ANSI-Medicaid [id number] ANSI-Not a Secondary Insurance [id number] ANSI-Medicaid [id number] SELF PAY ONLY SP MEDICAID [id number] SP [id number] [employer] COMMUNITY PLAN [facility] [id number] SP [id number] UN COMMUNITY PLAN [facility] [id number] SP [id number] Community [facility] Commercial Self [facility] Care Commercial [facility] Health Maintenance Organization (HMO) Self Problems, Conditions, and Diagnoses Code Display Name Description Problem Type Effective Dates Data Source(s) F41.8 [id number] Anxiety with depression Problem 07/18/2020 1 2:00:00 AM EST eCW1 ([facility]) F41.9 [id number] Anxiety disorder, unspecified Problem 07/18/2020 12:00:00 AM EST eCW1 ([facility]) F41.9 [id number] Anxiety Problem 07/18/2020 12:00:00 AM ES T eCW1 ([facility]) N89.8 [id number] Vaginal odor Problem 07/02/2020 12:00:00 AM EST eCW1 ([facility]) Z00.00 [id number] Health care maintenance Problem 10/20/2019 1 2:00:00 AM EDT eCW1 ([facility]) Z00.00 [id number] Health care maintenance Problem 10/20/2019 1 2:00:00 AM EDT eCW1 ([facility]) Surgeries/Procedures Procedure Description Date Indications Data Source(s) URINE-NO MICRO 11/21/2019 12:00:00 AM EDT eCW1 ([facility]) PHYSICIAN TELEPHONE EVALUATION 21-30 MIN 10/20/2019 12 :00:00 AM EDT eCW1 ([facility]) Results ID Date Data Source [id number] 09/13/2020 09:35:00 AM EST [facility] Name Value Range Interpretation Code Description Data Ella rce(s) Supporting Document(s) SARS coronavirus 2 RNA Not Detected [facility] [place] This lab was ordered by [facility] and reported by [facility]. ID Date Data Source SYPHILIS ANTIBODY (RPR SCREEN) 07/01/2020 12:00:00 AM EST eC W1 ([facility]) Name Value Range Interpretation Code Description Data Ella rce(s) Supporting Document(s) NONREACTIVE NONREACTIVE eCW1 ([facility]) ID Date Data Source [id number] 07/01/2020 12:00:00 AM EST eCW1 ([facility]) Name Value Range Interpretation Code Description Data Ella rce(s) Supporting Document(s) eCW1 ([facility]) ID Date Data Source PAP REQUEST FOR SERVICE 06/28/2020 12:00:00 AM EST eCW1 ([facility]) Name Value Range Interpretation Code Description Data Ella rce(s) Supporting Document(s) eCW1 ([facility]) Procedure Social History Code Duration Value Status Description Data Source(s ) Smoking 08/12/2020 12:00:00 AM EST Never Smoker completed Never S moker eCW1 ([facility]) Smoking 08/12/2020 12:00:00 AM EST Never Smoker completed Never S moker eCW1 ([facility]) Smoking 07/18/2020 12:00:00 AM EST Never Smoker completed Never S moker eCW1 ([facility]) Smoking 07/04/2020 12:00:00 AM EST Never Smoker completed Never S moker eCW1 ([facility]) Smoking 07/04/2020 12:00:00 AM EST Never Smoker completed Never S moker eCW1 ([facility]) Smoking 01/05/2020 12:00:00 AM EDT Never Smoker completed Never S moker eCW1 ([facility]) Smoking 11/21/2019 12:00:00 AM EDT Never Smoker completed Never S moker eCW1 ([facility]) Vital Signs ID Date Data Source UNK Name Value Range Interpretation Code Description Data Source(s) Diastolic blood pressure 74 mm[Hg] 74 mm[Hg] eCW1 ([facility]) Systolic blood pressure 116 mm[Hg] 116 mm[Hg] e CW1 ([facility]) Body temperature 98.2 [degF] 98.2 [degF] eCW1 ( [facility]) Respiratory rate 18 /min 18 /min eCW1 ([facility]) Heart rate 90 /min 90 /min eCW1 ([facility]) Body mass index (BMI) [Ratio] 19.56 kg/m2 19.56 kg/m2 eCW1 ([facility]) Body height [in_i] eCW1 ([facility]) Body weight 121.2 [lb_av] 121.2 [lb_av] eCW1 ([facility]) Diastolic blood pressure 80 mm[Hg] 80 mm[Hg] eCW1 ([facility]) Systolic blood pressure 130 mm[Hg] 130 mm[Hg] e CW1 ([facility]) Body temperature 97.8 [degF] 97.8 [degF] eCW1 ( [facility]) Respiratory rate 18 /min 18 /min eCW1 ([facility]) Heart rate 74 /min 74 /min eCW1 ([facility]) Body mass index (BMI) [Ratio] 20.66 kg/m2 20.66 kg/m2 eCW1 ([facility]) Body height [in_i] eCW1 ([facility]) Body weight 128 [lb_av] 128 [lb_av] eCW1 ([facility]) Diastolic blood pressure 76 mm[Hg] 76 mm[Hg] eCW1 ([facility]) Systolic blood pressure 118 mm[Hg] 118 mm[Hg] e CW1 ([facility]) Body temperature 97.6 [degF] 97.6 [degF] eCW1 ( [facility]) Respiratory rate 20 /min 20 /min eCW1 ([facility]) Heart rate 99 /min 99 /min eCW1 ([facility]) Body mass index (BMI) [Ratio] 21.08 kg/m2 21.08 kg/m2 eCW1 ([facility]) Body height [in_us] eCW1 ([facility]) Body weight Measured 130.6 [lb_av] 130.6 [lb_av ] eCW1 ([facility]) Patient Treatment Plan of Care Planned Activity Planned Date Details Description Data Source (s) Fluoxetine 20 MG Oral Capsule 08/12/2020 12:00:00 AM EST eCW1 ([facility]) Fluoxetine 20 MG Oral Capsule 08/12/2020 12:00:00 AM EST eCW1 ([facility]) buspirone hydrochloride 5 MG Oral Tablet 07/18/2020 12:00:00 AM EST eCW1 ([facility]) buspirone hydrochloride 5 MG Oral Tablet 07/18/2020 12:00:00 AM EST eCW1 ([facility]) buspirone hydrochloride 5 MG Oral Tablet 07/18/2020 12:00:00 AM EST eCW1 ([facility]) Fluoxetine 10 MG Oral Capsule 07/18/2020 12:00:00 AM EST eCW1 ([facility]) NITROFURANTOIN, MACROCRYSTALS 25 MG / Ni trofurantoin, Monohydrate 75 MG Oral Capsule 11/21/2019 12:00:00 AM EDT eCW1 ([facility]) NITROFURANTOIN, MACROCRYSTALS 25 MG / Ni trofurantoin, Monohydrate 75 MG Oral Capsule 11/21/2019 12:00:00 AM EDT [email or web address] ([facility])
--- OUTSIDE RECORDS SUMMARY | 2020-09-19 00:08 | CCD ---
Author Author [facility] Organization [facility] Address Unknown Phone Unavailable Care Team Providers Care Climate Change Risk Assessor Name Role Phone Evelyn Augustine Unavailable PROBLEMS Type Condition ICD9-CM Code [id number] Code Onset Dates Condition S tatus SNOMED Code Notes Problem Imbalance R26.89 Active 300027386 Problem Low back pain M54.5 Active 445850479 Problem Moderate major depression F32.1 Active 617148 Problem Severe major depression F32.2 Active 89423492 0 Problem Generalized anxiety disorder F41.1 Active 218 09836 Problem Anxiety, generalized F41.1 Active 28447921 Problem 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 Acti ve 46401497 Problem Internal hemorrhoid K64.8 Active 57703523 Problem Vivid dream F51.8 Active 154907101 Problem Other chronic pain G89.29 Active 55341075 Problem Tonsillith J35.8 Active 6570248 Problem Health care maintenance Z00.00 Active 27273243 1 Problem Mild intermittent reactive airway disease without comp lication J45.20 Active 566297560 Problem Migraine G43.909 Active 49191539 Problem Vaginal odor N89.8 Active 671306730 Problem Seasonal allergic rhinitis, unspecified allergic rhinitis trigger J30.2 Active 690343598 Problem Calculus of kidney N20.0 Active 53341401 Problem Urinary tract infection, site not specified N39.0 Active 76446245 Problem Anal fissure K60.2 Active 60061493 Problem 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 Active 654431524 Problem Allergic rhinitis J30.9 Active 13682865 ALLERGIES Allergen (clinical drug ingredient) Drug/Non Drug Allergy do cumented on EMR Reaction Allergy Type Onset Date Status Seasonal congestion, rhinorrhea Non Drug Allergy Active ENCOUNTERS from 1991 to 2020-07-11 Encounter [place] [address] 15 Jun, 2020 Evelyn Fawn IMMUNIZATIONS Vaccine Route [...] No Results REASON FOR VISIT Follow up MEDICAL (GENERAL) HISTORY Type Description Date Medical [...] Information ASSESSMENTS No Information PLAN OF TREATMENT Next Appt Details Provider Name:Evelyn Augustine, 2020-07-18 08 :00:00 AM, [address] [place] [address], [id number], Insurance Providers Payer Name Payer Address Payer Phone Insured Name Patient Relati onship to Insured Coverage Start Date Coverage End Date [facility] COMMUN[facility]AN [facility] [address] [facility] [id number] LILLIAM CASTANO
--- OUTSIDE RECORDS SUMMARY | 2020-09-19 00:08 | CCD ---
Author Author [facility] Organization [facility] Address Unknown Phone Unavailable Care Team Providers Care Bottle House Quality Control Technician Name Role Phone Evelyn Augustine Unavailable PROBLEMS Type Condition ICD9-CM Code [id number] Code Onset Dates Condition S tatus SNOMED Code Notes Problem Anxiety, generalized F41.1 Active 23948121 Problem Moderate major depression F32.1 Active 575936 Problem Internal hemorrhoid K64.8 Active 42349660 Problem Generalized anxiety disorder F41.1 Active 218 84579 Problem Seasonal allergic rhinitis, unspecified allergic rhinitis trigger J30.2 Active 832109152 Problem 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 Acti ve 35117653 Problem Vivid dream F51.8 Active 944572495 Problem Calculus of kidney N20.0 Active 34762991 Problem Mild intermittent reactive airway disease without comp lication J45.20 Active 203864000 Problem Migraine G43.909 Active 48684680 Problem Urinary tract infection, site not specified N39.0 Active 01881670 Problem Anal fissure K60.2 Active 62089236 Problem 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 Active 134646193 Problem Anxiety F41.9 Active 04827241 Problem Tonsillith J35.8 Active 8228013 Problem Imbalance R26.89 Active 278343288 Problem Anxiety disorder, unspecified F41.9 Active 23 8090783 Problem Other chronic pain G89.29 Active 54411032 Problem Low back pain M54.5 Active 517459106 Problem Severe major depression F32.2 Active 96304281 0 Problem Allergic rhinitis J30.9 Active 62207566 Problem Health care maintenance Z00.00 Active 32721333 1 Problem Vaginal odor N89.8 Active 212066918 Problem Anxiety with depression F41.8 Active 19478126 6 ALLERGIES Allergen (clinical drug ingredient) Drug/Non Drug Allergy do cumented on EMR Reaction Allergy Type Onset Date Status Seasonal congestion, rhinorrhea Non Drug Allergy Active ENCOUNTERS from 1991 to 2020-07-28 Encounter Location Date Provider Diagnosis [facility] [address] [place] [address] Jun, Evelyn Augustine Pap smear for cervical cance r screening Z12.4 ; Vaginal odor N89.8 ; Screening for gonorrhea Z11.3 ; Encounter for screening for other infectious and parasitic diseases Z11.8 and Screening for HIV (human immunodeficiency virus) Z11.4 IMMUNIZATIONS Vaccine Route Administration Date Status TDAP [...] REASON FOR REFERRAL No Information VITAL SIGNS Weight 121.2 lbs Jun, Height 5'6" in Jun, BMI 19.56 kg/m2 Jun, Heart Rate 90 /min Jun, Respiratory Rate 18 /min Jun, Temperature 98.2 degrees Fahrenheit Jun, Oximetry 98 Jun, Blood pressure systolic 116 mm Hg Jun, Blood pressure diastolic 74 mm Hg Jun, MEDICATIONS Medication SIG (Take, Route, Frequency, Duration) Notes Start Da te End Date Status Cetirizine HCl 10 MG 1 tablet Orally Once a day for 30 day(s) Active Fluoxetine HCl 10 MG 1 capsule Orally Once a day for 30 day(s) Jun, Active Levocetirizine Dihydrochloride 5 MG 1 tablet in the ev ening Orally Once a day for 30 day(s) Jan, Not-Taking Fluticasone Propionate 50 MCG/ACT 1 spray in each nost ril Nasally Once a day for 30 day(s) Not-Taking BusPIRone HCl 5 MG 1 tablet Orally Twice a day for 30 Days Jun, Active Ventolin HFA 108 (90 Base) MCG/ACT 2 puffs as needed I nhalation four times daily as needed for 30 day(s) Jul, Not-Taki ng PROCEDURES No Information RESULTS REASON FOR VISIT due for PAP MEDICAL (GENERAL) HISTORY Type Description Date Medical [...] No Information FUNCTIONAL STATUS No Information ASSESSMENTS Encounter Date Diagnosis Assessment Notes Treatment Notes Treatm ent Clinical Notes Jun, Pap smear for cervical cancer screening (ICD-10 - Z12.4) Patient presents for annual well woman exam. Her WINDER TENDER and OB history were reviewed. Pap smear and pelvic exam were performed and no abnormalities were noted except for that it appeared to be s/p cervix removal. Patient refused breast exam. Pap smear was sent to the lab. Patient reported that she never had an abnormal Pap smear. She also reported abnormal odor so a wet prep with whiff test was done and was unremarkable. Patient's outer vagina was examined, and the speculum was covered with sterile lubrications then inserted into vaginal canal. The speculum was then insrted into the end of the vaginal canal. The tip of the cervical brush was placed into and obtained sample from the end of the vaginal canal external, then carefully placedinto the sample pot. The speculum was removed from the vagina carefully. A bimanual exam was attempted, and no significant tenderness was observed during palpation of the end of the vaginal canal. Jun, Vaginal odor (ICD-10 - N89.8) She also reported abnormal odor so a wet prep with whiff test was done and was unremarkable. Pt denies any abnormal discharge, vaginal lesion, vaginal rash, or opening. The vaginal odor is likely 2/2 normal vaginal floral shift, and reassurance was discussed with patient. A KASSANDRA prep with sampling procedure was done with sample taken in the exam room with pharmacovigilance specialist in the exam room. Patient is aware that the procedure may cause vaginal discofort, pain, or minor bleeding. A speculum was inserted into vaginal after lubrication gel is applied outside of the speculum. A spatula was then used to obtain sample in the vaginal canal. Minimal thin normal appearing discharge noted near outer vaginal canal and was was smeared on a microscope slide on wet mount with KASSANDRA solutions. No abnormalities noted. Pt tolerated sampling procedure well. Jun, Screening for gonorrhea (ICD-10 - Z11.3) Pt would like to get screening for gonorrhea and chlamydia. GC and CH Amp ordered after pt gives urine sample and agrees to get tested Jun, Encounter for screening for other infectious and parasitic diseases (ICD-10 - Z11.8) Pt would like to get screening for syphillis today. Jun, Screening for HIV (human immunodeficienc y virus) (ICD-10 - Z11.4) Pt would like to get screened for HIV today Jun, Other A KASSANDRA prep with sampling procedure was done with sample taken in the exam room with pharmacovigilance specialist in the exam room. Patient is aware that the procedure may cause vaginal discofort, pain, or minor bleeding. A speculum was inserted into vaginal after lubrication gel is applied outside of the speculum. A spatula was then used to obtain sample in the vaginal canal. Minimal thin normal appearing discharge noted near outer vaginal canal and was was smeared on a microscope slide on wet mount with KASSANDRA solutions. No abnormalities noted. Pt tolerated sampling procedure well. Discussed with patient PLAN OF TREATMENT Medication Medication Name Sig Start Date Stop Date Cetirizine HCl 10 MG 1 tablet Orally Once a day for 30 day(s) BusPIRone HCl 5 MG 1 tablet Orally Twice a day for 30 Days 2019 Fluoxetine HCl 10 MG 1 capsule Orally Once a day for 30 day(s) 2 4 Jun, 2020 Treatment Notes Assessment Notes Clinical Notes Pap smear for cervical cancer screening Patient presents for annual well woman exam. Her WINDER TENDER and OB history were reviewed. Pap smear and pelvic exam were performed and no abnormalities were noted except for that it appeared to be s/p cervix removal. Patient refused breast exam. Pap smear was sent to the lab. Patient reported that she never had an abnormal Pap smear. She also reported abnormal odor so a wet prep with whiff test was done and was unremarkable.Patient's outer vagina was examined, and the speculum was covered with sterile lubrications then inserted into vaginal canal. The speculum was then insrted into the end of the vaginal canal. The tip of the cervical brush was placed into and obtained sample from the end of the vaginal canal external, then carefully placedinto the sample pot. The speculum was removed from the vagina carefully. A bimanual exam was attempted, and no significant tenderness was observed during palpation of the end of the vaginal canal. Vaginal odor She also reported ab normal odor so a wet prep with whiff test was done and was unremarkable. Pt denies any abnormal discharge, vaginal lesion, vaginal rash, or opening. The vaginal odor is likely 2/2 normal vaginal floral shift, and reassurance was discussed with patient. A KASSANDRA prep with sampling procedure was done with sample taken in the exam room with pharmacovigilance specialist in the exam room. Patient is aware that the procedure may cause vaginal discofort, pain, or minor bleeding. A speculum was inserted into vaginal after lubrication gel is applied outside of the speculum. A spatula was then used to obtain sample in the vaginal canal. Minimal thin normal appearing discharge noted near outer vaginal canal and was was smeared on a microscope slide on wet mount with KASSANDRA solutions. No abnormalities noted. Pt tolerated sampling procedure well. Screening for gonorrhea Pt would like to get screening for gonorrhea and chlamydia. GC and CH Amp ordered after pt gives urine sample and agrees to get tested Encounter for screening for other infectious and parasitic d iseases Pt would like to get screening for syphillis today. Screening for HIV (human immunodeficiency virus) Pt would like to get screened for HIV today Treatment Notes Test Name Order Date CHLAMYDIA & GC DNA AMPLIFICAT 2020-07-28 Next Appt Details 1-2 weeks Reason: Provider Name:Evelyn Fawn, 2020-08-12 01 :15:00 PM, [address] [facility], [place], [place], [id number], Insurance Providers Payer Name Payer Address Payer Phone Insured Name Patient Relati onship to Insured Coverage Start Date Coverage End Date [facility] COMM[facility] PLAN [facility] [address] [facility] [id number] LILLIAM CASTANO self
--- OUTSIDE RECORDS SUMMARY | 2020-09-19 00:08 | CCD ---
Author Author [facility] Organization [facility] Address Unknown Phone Unavailable Care Team Providers Care Digital Analyst Name Role Phone Evelyn Augustine Unavailable PROBLEMS Type Condition ICD9-CM Code [id number] Code Onset Dates Condition S tatus SNOMED Code Notes Problem Anxiety, generalized F41.1 Active 58629036 Problem Moderate major depression F32.1 Active 366546 Problem Internal hemorrhoid K64.8 Active 99982709 Problem Generalized anxiety disorder F41.1 Active 218 13602 Problem Seasonal allergic rhinitis, unspecified allergic rhinitis trigger J30.2 Active 973060227 Problem 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 Acti ve 97018387 Problem Vivid dream F51.8 Active 664953440 Problem Calculus of kidney N20.0 Active 03008810 Problem Mild intermittent reactive airway disease without comp lication J45.20 Active 977903043 Problem Migraine G43.909 Active 59494301 Problem Urinary tract infection, site not specified N39.0 Active 06570246 Problem Anal fissure K60.2 Active 32765220 Problem 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 Active 627732444 Problem Anxiety F41.9 Active 43083225 Problem Tonsillith J35.8 Active 8733970 Problem Imbalance R26.89 Active 393338847 Problem Anxiety disorder, unspecified F41.9 Active 23 3854271 Problem Other chronic pain G89.29 Active 25234591 Problem Low back pain M54.5 Active 553273507 Problem Severe major depression F32.2 Active 19838334 0 Problem Allergic rhinitis J30.9 Active 30584660 Problem Health care maintenance Z00.00 Active 77877215 1 Problem Vaginal odor N89.8 Active 551082183 Problem Anxiety with depression F41.8 Active 76405761 6 ALLERGIES Allergen (clinical drug ingredient) Drug/Non Drug Allergy do cumented on EMR Reaction Allergy Type Onset Date Status Seasonal congestion, rhinorrhea Non Drug Allergy Active ENCOUNTERS from 1991 to 2020-08-24 Encounter Location Date Provider Diagnosis [address] [address] Jul, Evelyn Augustine Anxiety with depression F41.8 IMMUNIZATIONS Vaccine Route Administration Date Status TDAP [...] Information RESULTS No Results REASON FOR VISIT scripts MEDICAL (GENERAL) HISTORY Type Description Date Medical [...] Notes Treatment Notes Treatm ent Clinical Notes Jul, Anxiety with depression (ICD-10 - F41.8) PLAN OF TREATMENT Medication Medication Name Sig [...] Insured Coverage Start Date Coverage End Date [facility] COMMUNITY PLAN [facility] [address] [facility] [phone] LILLIAM CASTANO
[2020-09-19] MEDS ORDERED: BUSP5TA (00:15)
[2020-09-19] MEDS ORDERED: CETI-24 (00:15)
[2020-09-19] MEDS ORDERED: FLUO20CA22 (00:15)
--- NOTE | 2020-09-19 01:21 | REPVR ---
PROCEDURE INFORMATION: Exam: XR Right Knee Exam date and time: 09/19/2020 12:16 AM Age: 30 years old Clinical indication: Other: Hit knee; Additional info: Hit knee on bed TECHNIQUE: Imaging protocol: XR Right knee. Views: 4 or more views. COMPARISON: No relevant prior studies available. FINDINGS: Bones/joints: Joint spaces are normal. No fracture or malalignment. Soft tissues: Normal. IMPRESSION: No fracture or malalignment. Electronically signed by: Jerrell Smith On 09/19/2020 01:21:13 AM
--- OUTSIDE RECORDS SUMMARY | 2020-09-19 01:50 | CCD ---
Author Author [facility] Organization [facility] Address Unknown Phone Unavailable Support Name Relationship Address Phone [facility]* Next Of Kin [address] [place] [address] [employer] Next Of Kin [address] [place] [address] [place] [address] [employer] [address] [employer] [facility] Next Of Kin [address] [place] [address] [place] [employer] Next Of Kin [address] [place] [address] RAYMON SHARMA Next Of Kin [address] [place] [address] [employer] Next Of Kin Unknown Unavailable [employer] Next Of Kin [address] [place] [address] [employer] Next Of Kin [address] [place] [address] [employer] Next Of Kin [address] [place] [address] [employer] Next Of Kin [address] [place] [address] [facility] Next Of Kin [address] [place] [address] WALKER HENRIQUEZ Next Of Kin [address] [place] [address] Walker Henriquez ECON [address] [place] [address] Unavailable Re-disclosure Warning The records that you [...] is protected by Article 27-F of the [facility] Public Health law. If you continue you may have access to information: Regarding HIV / AIDS; Provided by facilities licensed or operated by the [facility] Office of Mental Health; or Provided by the [facility] Office for People With Developmental Disabilities. If such information is present, then the following [facility] mandated warning applies: This information has [...] law may result in a fine or shelter sentence or both. A general authorization for the release of medical or other information is NOT sufficient authorization for further disc losure. Allergies and Adverse Reactions Type Description Substance Reaction Status Data Source(s ) Seasonal Seasonal Seasonal congestion, rhinorrhea Active e CW1 ([facility]) Seasonal Seasonal Seasonal congestion, rhinorrhea Active e CW1 ([facility]) Family History Family Member Name Family Member Gender Family Member Status Date o f Status Description Data Source(s) Unknown Unknown Problem MEDENT ([facility]) Unknown Unknown Problem MEDENT ([facility]) Unknown Male Problem MEDENT ([facility]) Encounters Encounter Providers Location Date Indications Data Source(s ) [place] [address] [address] 08/24/2020 12:00:00 AM EST eCW1 ([facility]) [place] [address] [address] 08/22/2020 12:00:00 AM EST eCW1 ([facility]) [place] [address] [facility] [place] [address] 07/09/2020 12:00:00 AM EST eCW1 ([facility]) [place] [address] [facility] [place] [address] 07/05/2020 12:00:00 AM EST eCW1 ([facility]) [place] [address] [facility] [address] 06/28/2020 12:00:00 AM EST eCW1 ([facility]) Outpatient 01/12/2020 05:49:00 AM EDT [facility] [address] [facility] [address] 01/05/2020 12:00:00 AM EDT eCW1 ([facility]) [place] [address] [facility] [place] [address] 12/29/2019 12:00:00 AM EDT eCW1 ([facility]) Outpatient 12/21/2019 05:35:00 AM EDT [facility] [address] [facility] [address] 12/08/2019 12:00:00 AM EDT eCW1 ([facility]) [facility] Resident [address] [place] [address] 11/21/2019 12:00:00 AM EDT eCW1 ([facility]) [facility] [address] [facility] [place] [address] 11/20/2019 12:00:00 AM EDT eCW1 ([facility]) [facility] Res[facility] [address] [place] [address] 10/20/2019 12:00:00 AM EDT eCW1 ([facility]) [facility] [address] [facility] [place] [address] 10/10/2019 12:00:00 AM EDT eCW1 ([facility]) Medications Medication Brand Name Start Date Product Form Dose Route Admi nistrative Instructions Pharmacy Instructions Status Indications Reaction Description Data Source(s) Fluoxetine 20 MG Oral Capsule Fluoxetine HCl 20 MG Fluoxetin e HCl 20 MG 08/12/2020 12:00:00 AM EST 1.0 {capsule} active Fluoxetine HCl 20 MG eCW1 ([facility]) Fluoxetine 20 MG Oral Capsule Fluoxetine HCl 20 MG Fluoxetin e HCl 20 MG 08/12/2020 12:00:00 AM EST 1.0 {capsule} active Fluoxetine HCl 20 MG eCW1 ([facility]) Fluoxetine 10 MG Oral Capsule Fluoxetine HCl 10 MG Fluoxetin e HCl 10 MG 07/18/2020 12:00:00 AM EST 1.0 {capsule} active Fluoxetine HCl 10 MG eCW1 ([facility]) Fluoxetine 10 MG Oral Capsule Fluoxetine HCl 10 MG Fluoxetin e HCl 10 MG 07/18/2020 12:00:00 AM EST 1.0 {capsule} active Fluoxetine HCl 10 MG eCW1 ([facility]) buspirone hydrochloride 5 MG Oral Tablet BusPIRone HCl 5 MG BusPIRone HCl 5 MG 07/18/2020 12:00:00 AM EST 1.0 {tablet} active BusPIRone HCl 5 MG eCW1 ([facility]) Fluoxetine 10 MG Oral Capsule Fluoxetine HCl 10 MG Fluoxetin e HCl 10 MG 07/18/2020 12:00:00 AM EST 1.0 {capsule} active Fluoxetine HCl 10 MG eCW1 ([facility]) buspirone hydrochloride 5 MG Oral Tablet BusPIRone HCl 5 MG BusPIRone HCl 5 MG 07/18/2020 12:00:00 AM EST 1.0 {tablet} active BusPIRone HCl 5 MG eCW1 ([facility]) buspirone hydrochloride 5 MG Oral Tablet BusPIRone HCl 5 MG BusPIRone HCl 5 MG 07/18/2020 12:00:00 AM EST 1.0 {tablet} active BusPIRone HCl 5 MG eCW1 ([facility]) 40 mg 03/30/2020 12:00:00 AM EDT capsule,delayed [...] active Nitrofurantoin Monohyd Macro 100 MG eCW1 ([facility]) 100 mg 11/21/2019 12:00:00 AM EDT capsule [...] 1 capsule at bedtime with food eCW1 ([facility]) levocetirizine dihydrochloride 5 MG Oral Tablet LEVOCETIRIZI NE DIHYDROCHLORIDE 10/10/2019 12:00:00 AM EDT tablet 30 TAKE ONE TABLE T BY MOUTH EVERY EVENING TAKE ONE TABLET BY MOUTH EVERY EVENING SOLD: 10/11/2019 [facility] Insurance Providers Payer name Policy type / Coverage type Policy ID Covered republican ID Covered republican's relationship to wallace Policy Wallace Plan Information OTHER WORKERS COMPENSATION [id number] SP [id number] [facility] [id number] SP [id number] [facility] [id number] SP [id number] [facility] [id number] SP [id number] [facility] O [id number] S [id number] [facility] [id number] SP [id number] [facility] [id number] SP [id number] ANSI-Medicaid [id number] ANSI-Not a Secondary Insurance [id number] ANSI-Medicaid [id number] ANSI-Not a Secondary Insurance [id number] ANSI-Medicaid [id number] ANSI-Medicaid [id number] ANSI-Medicaid [id number] ANSI-Medicaid [id number] ANSI-Not a Secondary Insurance [id number] [facility] Health Maintenance Organization (HMO) [id number] Self [id number] [facility] Health Maintenance Organization ([facility] [id number] [facility] [id number] ANSI-Not a Secondary Insurance [id number] ANSI-Medicaid [id number] ANSI-Medicaid [id number] ANSI-Medicaid [id number] ANSI-Not a Secondary Insurance [id number] ANSI-Medicaid [id number] ANSI-Not a Secondary Insurance [id number] ANSI-Medicaid [id number] ANSI-Medicaid [id number] ANSI-Medicaid [id number] ANSI-Medicaid [id number] ANSI-Not a Secondary Insurance [id number] ANSI-Medicaid [id number] ANSI-Medicaid [id number] ANSI-Not a Secondary Insurance [id number] ANSI-Not a Secondary Insurance [id number] ANSI-Medicaid [id number] ANSI-Medicaid [id number] ANSI-Medicaid [id number] ANSI-Medicaid [id number] ANSI-Not a Secondary Insurance [id number] ANSI-Medicaid [id number] ANSI-Medicaid [id number] ANSI-Not a Secondary Insurance [id number] ANSI-Not a Secondary Insurance [id number] ANSI-Medicaid [id number] ANSI-Medicaid [id number] ANSI-Medicaid [id number] ANSI-Not a Secondary Insurance [id number] ANSI-Medicaid [id number] ANSI-Medicaid [id number] ANSI-Not a Secondary Insurance [id number] ANSI-Medicaid [id number] ANSI-Medicaid [id number] ANSI-Not a Secondary Insurance [id number] ANSI-Medicaid [id number] ANSI-Not a Secondary Insurance [id number] ANSI-Medicaid [id number] ANSI-Medicaid [id number] ANSI-Not a Secondary Insurance [id number] ANSI-Medicaid [id number] ANSI-Medicaid [id number] ANSI-Medicaid [id number] ANSI-Not a Secondary Insurance [id number] ANSI-Medicaid [id number] [facility] Commercial [id number] Self [id number] [facility] Commercial [id number] Self [id number] ANSI-Not a Secondary Insurance [id number] ANSI-Medicaid [id number] ANSI-Medicaid [id number] ANSI-Medicaid [id number] ANSI-Not a Secondary Insurance [id number] ANSI-Medicaid [id number] SELF PAY ONLY SP MEDICAID [id number] SP [id number] [facility] [employer] [facility] [id number] SP [id number] [facility] [id number] SP [id number] [facility] Commercial Self [facility] [facility] Health Maintenance Organization (HMO) Self Problems, Conditions, and Diagnoses Code Display Name Description Problem Type Effective Dates Data Source(s) F41.8 [id number] Anxiety with depression Problem 07/18/2020 1 2:00:00 AM EST eCW1 ([facility]) F41.9 [id number] Anxiety disorder, unspecified Problem 07/18/2020 12:00:00 AM EST eCW1 ([facility]) F41.9 [id number] Anxiety Problem 07/18/2020 12:00:00 AM ES T eCW1 ([facility]) N89.8 [id number] Vaginal odor Problem 07/02/2020 12:00:00 AM EST eCW1 ([facility]) Z00.00 [id number] Health care maintenance Problem 10/20/2019 1 2:00:00 AM EDT eCW1 ([facility]) Z00.00 [id number] Health care maintenance Problem 10/20/2019 1 2:00:00 AM EDT eCW1 ([facility]) Surgeries/Procedures Procedure Description Date Indications Data Source(s) URINE-NO MICRO 11/21/2019 12:00:00 AM EDT eCW1 ([facility]) PHYSICIAN TELEPHONE EVALUATION 21-30 MIN 10/20/2019 12 :00:00 AM EDT eCW1 ([facility]) Results ID Date Data Source [id number] 09/13/2020 09:35:00 AM EST [facility] Name Value Range Interpretation Code Description Data Ella rce(s) Supporting Document(s) SARS coronavirus 2 RNA Not Detected [facility] This lab was ordered by [facility] and reported by [facility]. ID Date Data Source SYPHILIS ANTIBODY (RPR SCREEN) 07/01/2020 12:00:00 AM EST eC W1 ([facility]) Name Value Range Interpretation Code Description Data Ella rce(s) Supporting Document(s) NONREACTIVE NONREACTIVE eCW1 ([facility]) ID Date Data Source [id number] 07/01/2020 12:00:00 AM EST eCW1 ([facility]) Name Value Range Interpretation Code Description Data Ella rce(s) Supporting Document(s) eCW1 ([facility]) ID Date Data Source PAP REQUEST FOR SERVICE 06/28/2020 12:00:00 AM EST eCW1 ([facility]) Name Value Range Interpretation Code Description Data Ella rce(s) Supporting Document(s) eCW1 ([facility]) Procedure Social History Code Duration Value Status Description Data Source(s ) Smoking 08/12/2020 12:00:00 AM EST Never Smoker completed Never S moker eCW1 ([facility]) Smoking 08/12/2020 12:00:00 AM EST Never Smoker completed Never S moker eCW1 ([facility]) Smoking 07/18/2020 12:00:00 AM EST Never Smoker completed Never S moker eCW1 ([facility]) Smoking 07/04/2020 12:00:00 AM EST Never Smoker completed Never S moker eCW1 ([facility]) Smoking 07/04/2020 12:00:00 AM EST Never Smoker completed Never S moker eCW1 ([facility]) Smoking 01/05/2020 12:00:00 AM EDT Never Smoker completed Never S moker eCW1 ([facility]) Smoking 11/21/2019 12:00:00 AM EDT Never Smoker completed Never S moker eCW1 ([facility]) Vital Signs ID Date Data Source UNK Name Value Range Interpretation Code Description Data Source(s) Diastolic blood pressure 74 mm[Hg] 74 mm[Hg] eCW1 ([facility]) Systolic blood pressure 116 mm[Hg] 116 mm[Hg] e CW1 ([facility]) Body temperature 98.2 [degF] 98.2 [degF] eCW1 ( [facility]) Respiratory rate 18 /min 18 /min eCW1 ([facility]) Heart rate 90 /min 90 /min eCW1 ([facility]) Body mass index (BMI) [Ratio] 19.56 kg/m2 19.56 kg/m2 eCW1 ([facility]) Body height [in_i] eCW1 ([facility]) Body weight 121.2 [lb_av] 121.2 [lb_av] eCW1 ([facility]) Diastolic blood pressure 80 mm[Hg] 80 mm[Hg] eCW1 ([facility]) Systolic blood pressure 130 mm[Hg] 130 mm[Hg] e CW1 ([facility]) Body temperature 97.8 [degF] 97.8 [degF] eCW1 ( [facility]) Respiratory rate 18 /min 18 /min eCW1 ([facility]) Heart rate 74 /min 74 /min eCW1 ([facility]) Body mass index (BMI) [Ratio] 20.66 kg/m2 20.66 kg/m2 eCW1 ([facility]) Body height [in_i] eCW1 ([facility]) Body weight 128 [lb_av] 128 [lb_av] eCW1 ([facility]) Diastolic blood pressure 76 mm[Hg] 76 mm[Hg] eCW1 ([facility]) Systolic blood pressure 118 mm[Hg] 118 mm[Hg] e CW1 ([facility]) Body temperature 97.6 [degF] 97.6 [degF] eCW1 ( [facility]) Respiratory rate 20 /min 20 /min eCW1 ([facility]) Heart rate 99 /min 99 /min eCW1 ([facility]) Body mass index (BMI) [Ratio] 21.08 kg/m2 21.08 kg/m2 eCW1 ([facility]) Body height [in_us] eCW1 ([facility]) Body weight Measured 130.6 [lb_av] 130.6 [lb_av ] eCW1 ([facility]) Patient Treatment Plan of Care Planned Activity Planned Date Details Description Data Source (s) Fluoxetine 20 MG Oral Capsule 08/12/2020 12:00:00 AM EST eCW1 ([facility]) Fluoxetine 20 MG Oral Capsule 08/12/2020 12:00:00 AM EST eCW1 ([facility]) buspirone hydrochloride 5 MG Oral Tablet 07/18/2020 12:00:00 AM EST eCW1 ([facility]) buspirone hydrochloride 5 MG Oral Tablet 07/18/2020 12:00:00 AM EST eCW1 ([facility]) buspirone hydrochloride 5 MG Oral Tablet 07/18/2020 12:00:00 AM EST eCW1 ([facility]) Fluoxetine 10 MG Oral Capsule 07/18/2020 12:00:00 AM EST eCW1 ([facility]) NITROFURANTOIN, MACROCRYSTALS 25 MG / Ni trofurantoin, Monohydrate 75 MG Oral Capsule 11/21/2019 12:00:00 AM EDT eCW1 ([facility]) NITROFURANTOIN, MACROCRYSTALS 25 MG / Ni trofurantoin, Monohydrate 75 MG Oral Capsule 11/21/2019 12:00:00 AM EDT eCW1 ([facility])
[2020-09-19 02:06] VITALS: BP 124/68
== END 2020-09-19 02:11 | disposition home or self-care (01) ==
LOC: M ED 23:58
DX: M25.561 Pain in right knee (principal); S70.11XA Contusion of right thigh, initial encounter; X58.XXXA Exposure to other specified factors, initial encounter; Y92.238 Other place in hospital as the place of occurrence of the external cause; Y99.0 Civilian activity done for income or pay; J45.909 Unspecified asthma, uncomplicated; F41.9 Anxiety disorder, unspecified; M48.00 Spinal stenosis, site unspecified; M51.9 Unspecified thoracic, thoracolumbar and lumbosacral intervertebral disc disorder; G89.29 Other chronic pain; R10.9 Unspecified abdominal pain; Z79.899 Other long term (current) drug therapy; F17.210 Nicotine dependence, cigarettes, uncomplicated

== ENCOUNTER → 2021-01-19 | Outpatient (CLI) | payer OTHER ==
[~2021-01-19] MED LIST changes: +BUSP5TA; +CETI-24; +FLUO20CA22
--- NOTE | 2021-01-19 14:15 | REP ---
INDICATION: PAIN IN RIGHT ANKLE AND JOINTS OF RIGHT FOOT COMPARISON: None. TECHNIQUE: AP, lateral, bilateral oblique views. FINDINGS: No obvious acute fracture or dislocation. Skeletal structures and joint spaces are intact and normal. Ankle mortise appears stable. No subcutaneous emphysema or radiodense foreign body. IMPRESSION: No obvious acute fracture or dislocation. <Electronically signed by Ed Brown > 01/19/21 [id number]
== END ==
LOC: M RAD 13:44
PROVIDERS: ATTEND Physician Assistant
DX: M25.571 Pain in right ankle and joints of right foot (principal)

== ENCOUNTER 2021-03-19 13:58 | Emergency (ER) | payer OTHER ==
[~2021-03-19] VITALS: Ht 162.6 cm; Wt 58.2 kg
[2021-03-19 13:59] VITALS: BP 115/81
== END 2021-03-19 14:21 | disposition left against medical advice (07) ==
LOC: M ED 13:58
DX: Z53.21 Procedure and treatment not carried out due to patient leaving prior to being seen by health care provider (principal)

== ENCOUNTER → 2021-04-01 | Outpatient (CLI) | payer OTHER ==
--- NOTE | 2021-04-01 14:04 | REP ---
INDICATION: UNSPECIFIED INJURY OF RIGHT ANKLE, INITIAL ENCOUNT. COMPARISON: None. TECHNIQUE: Four views of the right foot. FINDINGS: Four views of the right foot demonstrate normal bones, joints, and soft tissues. No fracture or subluxation is seen. No opaque foreign body noted. Incidental note is made of a normal bone island in the proximal 1st metatarsal. IMPRESSION: Negative right foot series. <Electronically signed by Ellis Rg > 04/01/21 1400
== END ==
LOC: M PLAIMG 11:14
PROVIDERS: ATTEND Student in an Organized Health Care Education/Training Program
DX: S99.911A Unspecified injury of right ankle, initial encounter (principal); W18.30XA Fall on same level, unspecified, initial encounter; Y92.009 Unspecified place in unspecified non-institutional (private) residence as the place of occurrence of the external cause

== ENCOUNTER → 2021-07-28 | Outpatient (CLI) | payer OTHER ==
[2021-07-28 18:31] LABS: BASO # 0.1 10^3/uL (0.0-0.2); BASO % 1.3 % (0.0-1.0); EOS # 0.1 10^3/uL (0.0-0.5); EOS % 1.4 % (0.0-3.0); HEMOGLOBIN 13.4 g/dl (12.0-15.5); LYMPH % 32.4 % (24.0-44.0); MEAN CORPUSCULAR HEMOGLOBIN 30.2 pg (27.0-33.0); MEAN CORPUSCULAR HGB CONC 32.7 g/dl (32.0-36.5); MEAN CORPUSCULAR VOLUME 92.6 fl (80.0-96.0); MONO # 0.8 10^3/uL (0.0-0.8); NEUTROPHILS # 3.3 10^3/uL (1.5-8.5); NEUTROPHILS % 52.6 % (36.0-66.0); PLATELET COUNT, AUTOMATED 164 10^3/uL (150-450); RED BLOOD COUNT 4.43 10^6/uL (4.00-5.40); WHITE BLOOD COUNT 6.2 10^3/uL (4.0-10.0)
== END ==
LOC: M LAB 17:50
PROVIDERS: ATTEND Student in an Organized Health Care Education/Training Program
DX: K91.2 Postsurgical malabsorption, not elsewhere classified (principal)

== ENCOUNTER → 2021-09-12 | Outpatient (CLI) | payer OTHER | LOC: M LABSMTC 10:52 | PROVIDERS: ATTEND Anesthesiology | DX: Z01.818 Encounter for other preprocedural examination (principal); Z11.52 Encounter for screening for COVID-19 ==

== ENCOUNTER → 2021-09-12 | Outpatient (CLI) | payer OTHER ==
[~2021-09-12] MED LIST changes: +GASTROGRAFIN SOLUTION 30ML (Q9963) As Ordered ONE; +ISOVUE-370 76% 100ML VIAL As Ordered ONE
[2021-09-12 15:21] LABS: BASO # 0.1 10^3/uL (0.0-0.2); BASO % 0.9 % (0.0-1.0); EOS # 0.1 10^3/uL (0.0-0.5); EOS % 0.9 % (0.0-3.0); HEMATOCRIT 41.1 % (36.0-47.0); HEMOGLOBIN 13.3 g/dl (12.0-15.5); LYMPH # 1.9 10^3/uL (1.5-5.0); MEAN CORPUSCULAR HEMOGLOBIN 30.2 pg (27.0-33.0); MEAN CORPUSCULAR HGB CONC 32.4 g/dl (32.0-36.5); MEAN CORPUSCULAR VOLUME 93.2 fl (80.0-96.0); MONO # 0.6 10^3/uL (0.0-0.8); MONO % 7.3 % (2.0-8.0); NEUTROPHILS # 5.1 10^3/uL (1.5-8.5); NEUTROPHILS % 65.6 % (36.0-66.0); PLATELET COUNT, AUTOMATED 187 10^3/uL (150-450); RED BLOOD COUNT 4.41 10^6/uL (4.00-5.40); WHITE BLOOD COUNT 7.8 10^3/uL (4.0-10.0)
[2021-09-12 15:41] LABS: ERYTHROCYTE SEDIMENTATION RATE 8 mm/hr (0-20)
[2021-09-12 15:46] LABS: ALBUMIN 4.1 GM/DL (3.2-5.2); ALT/SGPT 20 U/L (12-78); BILIRUBIN,TOTAL 0.2 MG/DL (0.2-1.0); BLOOD UREA NITROGEN 17 MG/DL (7-18); C REACTIVE PROTEIN QUANTITATIV 0.32 MG/DL (0.00-0.30); CALCIUM LEVEL 9.9 MG/DL (8.5-10.1); CARBON DIOXIDE LEVEL 28 MEQ/L (21-32); CHLORIDE LEVEL 111 MEQ/L (98-107); CREATININE FOR GFR 1.02 MG/DL (0.55-1.30); GLOMERULAR FILTRATION RATE > 60.0 (>60); GLUCOSE, FASTING 93 MG/DL (70-100); LIPASE 120 U/L (73-393); POTASSIUM SERUM 4.1 MEQ/L (3.5-5.1); SODIUM LEVEL 143 MEQ/L (136-145); TOTAL PROTEIN 7.8 GM/DL (6.4-8.2)
== END ==
LOC: M RAD 14:51
PROVIDERS: ATTEND Physician Assistant
DX: R10.84 Generalized abdominal pain (principal); K62.5 Hemorrhage of anus and rectum
CPT/HCPCS: 36415; 74177; 80053; 83690; 85025; 85652; 86140; Q9963; Q9967

== ENCOUNTER 2021-10-23 17:19 | Emergency (ER) | payer OTHER ==
[~2021-10-23] VITALS: Ht 167.6 cm; Wt 65.6 kg
[~2021-10-23 17:19] MED LIST changes: -GASTROGRAFIN SOLUTION 30ML (Q9963) As Ordered ONE; -ISOVUE-370 76% 100ML VIAL As Ordered ONE
[2021-10-23] MEDS ORDERED: METHOCARBAMOL 1,000 MG/10 ML VIAL (J2800) IV ONE (21:35)
[2021-10-23] MEDS ORDERED: KETOROLAC 30 MG/ML 1ML VIAL IV ONE (21:35)
[2021-10-23] MEDS ORDERED: METH-1165 PO (23:29)
[2021-10-23] MEDS ORDERED: NAPR-837 PO (23:29)
[2021-10-24 00:19] VITALS: BP 140/70
== END 2021-10-24 00:22 | disposition home or self-care (01) ==
LOC: M ED 17:19
DX: S29.011A Strain of muscle and tendon of front wall of thorax, initial encounter (principal); Y92.9 Unspecified place or not applicable; Y93.9 Activity, unspecified; Y99.9 Unspecified external cause status; F12.10 Cannabis abuse, uncomplicated
CPT/HCPCS: 70450; 93005; 96374; 99284; J1885; J2800

== ENCOUNTER → 2022-01-05 | Outpatient (CLI) | payer OTHER ==
[~2022-01-05] MED LIST changes: +METH-1165 PO; +NAPR-837 PO
== END ==
LOC: M RAD 16:09
PROVIDERS: ATTEND Student in an Organized Health Care Education/Training Program
DX: M54.2 Cervicalgia (principal)

== ENCOUNTER 2022-01-21 07:56 | Outpatient (RCR) | payer OTHER | END 2022-01-22 | LOC: M PT 07:56 | PROVIDERS: ATTEND Student in an Organized Health Care Education/Training Program | DX: R20.2 Paresthesia of skin (principal) ==

== ENCOUNTER 2022-02-17 11:45 | Outpatient (RCR) | payer OTHER | END 2022-02-22 | LOC: M PT 11:45 | PROVIDERS: ATTEND Student in an Organized Health Care Education/Training Program | DX: R20.2 Paresthesia of skin (principal) ==

== ENCOUNTER → 2022-02-24 | Outpatient (REF) | payer OTHER | LOC: M SFHCPLAZ 09:32 | PROVIDERS: ATTEND Family Medicine | DX: Z13.29 Encounter for screening for other suspected endocrine disorder (principal) ==

== ENCOUNTER → 2022-02-24 | Outpatient (CLI) | payer OTHER ==
[2022-02-24 13:55] LABS: THYROID STIMULATING HORMONE 0.618 uIU/ML (0.358-3.740); THYROXINE (T4) 9.2 UG/DL (4.5-12.0)
== END ==
LOC: M PLALAB 09:49
PROVIDERS: ATTEND Student in an Organized Health Care Education/Training Program
DX: Z13.29 Encounter for screening for other suspected endocrine disorder (principal)

== ENCOUNTER → 2022-03-11 | Outpatient (CLI) | payer OTHER | LOC: M RAD 11:26 | PROVIDERS: ATTEND Student in an Organized Health Care Education/Training Program | DX: Z13.29 Encounter for screening for other suspected endocrine disorder (principal) ==

== ENCOUNTER 2022-03-12 10:49 | Outpatient (RCR) | payer OTHER | END 2022-03-25 | LOC: M PT 10:49 | PROVIDERS: ATTEND Student in an Organized Health Care Education/Training Program | DX: R20.2 Paresthesia of skin (principal) ==

== ENCOUNTER 2022-06-26 11:11 | Emergency (ER) | payer OTHER ==
[~2022-06-26] VITALS: Ht 167.6 cm; Wt 68.6 kg
[2022-06-26 11:12] VITALS: BP 119/80
[2022-06-26 13:10] LABS: BASO # 0.1 10^3/uL (0.0-0.2); BASO % 0.7 % (0.0-1.0); EOS % 0.2 % (0.0-3.0); HEMATOCRIT 40.7 % (36.0-47.0); HEMOGLOBIN 13.4 g/dl (12.0-15.5); LYMPH # 2.1 10^3/uL (1.5-5.0); LYMPH % 24.8 % (24.0-44.0); MEAN CORPUSCULAR HEMOGLOBIN 30.7 pg (27.0-33.0); MEAN CORPUSCULAR HGB CONC 32.9 g/dl (32.0-36.5); MEAN CORPUSCULAR VOLUME 93.1 fl (80.0-96.0); MONO # 0.6 10^3/uL (0.0-0.8); MONO % 6.5 % (2.0-8.0); NEUTROPHILS # 5.8 10^3/uL (1.5-8.5); NEUTROPHILS % 67.4 % (36.0-66.0); PLATELET COUNT, AUTOMATED 176 10^3/uL (150-450); RED BLOOD COUNT 4.37 10^6/uL (4.00-5.40); WHITE BLOOD COUNT 8.6 10^3/uL (4.0-10.0)
[2022-06-26 13:50] LABS: LIPASE 22 U/L (12-53)
[2022-06-26 13:52] LABS: ALBUMIN 4.5 G/DL (3.2-5.2); ALKALINE PHOSPHATASE 56 U/L (46-116); ALT/SGPT 14 U/L (7.0-40); AST/SGOT 14 U/L (<34); BILIRUBIN,DIRECT 0.3 MG/DL (<0.4); BILIRUBIN,TOTAL 0.8 MG/DL (0.3-1.2); BLOOD UREA NITROGEN 13 MG/DL (9-23); CALCIUM LEVEL 10.1 MG/DL (8.5-10.1); CARBON DIOXIDE LEVEL 26 MMOL/L (20-31); CHLORIDE LEVEL 104 MMOL/L (98-107); GLOMERULAR FILTRATION RATE > 60.0 (>60); GLUCOSE, FASTING 80 MG/DL (60-100); POTASSIUM SERUM 4.2 MMOL/L (3.5-5.1); SODIUM LEVEL 138 MMOL/L (136-145); TOTAL PROTEIN 7.5 G/DL (5.7-8.2)
== END 2022-06-26 16:40 | disposition left against medical advice (07) ==
LOC: M ED 11:11
DX: Z53.21 Procedure and treatment not carried out due to patient leaving prior to being seen by health care provider (principal)

== ENCOUNTER → 2022-10-29 | Outpatient (CLI) | payer OTHER | LOC: M PLAIMG 14:59 | PROVIDERS: ATTEND Physician Assistant | DX: Z04.3 Encounter for examination and observation following other accident (principal) ==

== ENCOUNTER → 2023-09-16 | Outpatient (REF) | payer OTHER, MEDICAID ==
[~2023-09-16] MED LIST changes: +[UNRECOGNIZED DRUG - CODE] PO; -[UNRECOGNIZED DRUG - CODE] PO
== END ==
LOC: M SFHCPLAZ 13:14
PROVIDERS: ATTEND Family Medicine
DX: Q76.49 Other congenital malformations of spine, not associated with scoliosis (principal); M54.16 Radiculopathy, lumbar region

== ENCOUNTER → 2023-09-20 | Outpatient (CLI) | payer OTHER | LOC: M PLAIMG 14:39 | PROVIDERS: ATTEND Student in an Organized Health Care Education/Training Program | DX: I34.0 Nonrheumatic mitral (valve) insufficiency (principal) ==

== ENCOUNTER → 2023-10-04 | Outpatient (CLI) | payer MEDICAID, OTHER | LOC: M PLALAB 09:17 | PROVIDERS: ATTEND Student in an Organized Health Care Education/Training Program | DX: M48.061 Spinal stenosis, lumbar region without neurogenic claudication (principal) ==

== ENCOUNTER → 2023-10-25 | Outpatient (CLI) | payer OTHER | LOC: M PLAIMG 07:11 | PROVIDERS: ATTEND Student in an Organized Health Care Education/Training Program | DX: Q76.49 Other congenital malformations of spine, not associated with scoliosis (principal) ==

== ENCOUNTER → 2024-02-07 | Outpatient (REF) | payer MEDICAID, OTHER ==
[~2024-02-07] MED LIST changes: +FLUO-365; -FLUO20CA22; +ONDA-282 PO; -ONDA4TAB6 PO
== END ==
LOC: M SFHCPLAZ 18:35
PROVIDERS: ATTEND Student in an Organized Health Care Education/Training Program
DX: M54.50 Low back pain, unspecified (principal); Z13.0 Encounter for screening for diseases of the blood and blood-forming organs and certain disorders involving the immune mechanism; Z13.1 Encounter for screening for diabetes mellitus; Z13.220 Encounter for screening for lipoid disorders

== ENCOUNTER → 2024-04-11 | Outpatient (CLI) | payer OTHER ==
[2024-04-11 10:20] LABS: HEMATOCRIT 41.6 % (36.0-47.0); HEMOGLOBIN 13.6 g/dl (12.0-15.5); MEAN CORPUSCULAR HEMOGLOBIN 30.8 pg (27.0-33.0); MEAN CORPUSCULAR HGB CONC 32.7 g/dl (32.0-36.5); MEAN CORPUSCULAR VOLUME 94.3 fl (80.0-96.0); PLATELET COUNT, AUTOMATED 172 10^3/uL (150-450); RED BLOOD COUNT 4.41 10^6/uL (4.00-5.40); WHITE BLOOD COUNT 4.4 10^3/uL (4.0-10.0)
[2024-04-11 10:47] LABS: HEMOGLOBIN A1c 5.2 % (4.0-6.0)
[2024-04-11 10:54] LABS: BLOOD UREA NITROGEN 9 MG/DL (9-23); CALCIUM LEVEL 10.5 MG/DL (8.5-10.1); CARBON DIOXIDE LEVEL 29 MMOL/L (20-31); CHLORIDE LEVEL 111 MMOL/L (98-107); CHOLESTEROL LEVEL 164 MG/DL (<200); CHOLESTEROL RISK RATIO 3.21 (<5); CREATININE FOR GFR 0.82 MG/DL (0.55-1.30); GLOMERULAR FILTRATION RATE > 60.0 (>60); GLUCOSE, FASTING 94 MG/DL (60-100); LDL CHOLESTEROL 99.6 MG/DL (<100); POTASSIUM SERUM 4.6 MMOL/L (3.5-5.1); SODIUM LEVEL 140 MMOL/L (136-145); TRIGLYCERIDES LEVEL 67 MG/DL (<150)
[2024-04-11 10:55] LABS: TOTAL 25(OH) VITAMIN D 22.9 NG/ML (20.0-100.0); VITAMIN B12 LEVEL 510 PG/ML (211-911)
== END ==
LOC: M LAB 09:06
DX: M54.50 Low back pain, unspecified (principal); Z13.0 Encounter for screening for diseases of the blood and blood-forming organs and certain disorders involving the immune mechanism; Z13.1 Encounter for screening for diabetes mellitus; Z13.220 Encounter for screening for lipoid disorders

== ENCOUNTER → 2024-05-09 | Outpatient (CLI) | payer OTHER ==
[2024-05-09 13:40] LABS: CALCIUM LEVEL 11.3 MG/DL (8.5-10.1)
[2024-05-09 13:41] LABS: PTH INTACT 137.7 PG/ML (18.5-88.0)
[2024-05-09 13:45] LABS: THYROID STIMULATING HORMONE 1.595 uIU/ML (0.55-4.78); THYROXINE (T4) 8.9 UG/DL (4.5-10.9)
[2024-05-09 13:46] LABS: FREE THYROXINE INDEX 2.8 % (1.3-4.8); T UPTAKE 30.9 % (22.5-37.0)
== END ==
LOC: M PLALAB 09:36
DX: E83.52 Hypercalcemia (principal); R63.4 Abnormal weight loss

== ENCOUNTER → 2024-05-09 | Outpatient (CLI) | payer OTHER | LOC: M LAB 10:27 | DX: E83.52 Hypercalcemia (principal) ==

== ENCOUNTER → 2024-05-09 | Outpatient (REF) | payer OTHER, MEDICAID | LOC: M SFHCPLAZ 09:19 | PROVIDERS: ATTEND Family Medicine | DX: E83.52 Hypercalcemia (principal); R63.4 Abnormal weight loss ==

== ENCOUNTER → 2024-05-10 | Outpatient (REF) | payer OTHER | LOC: M LAB 14:26 | DX: E83.52 Hypercalcemia (principal) ==

== ENCOUNTER → 2024-05-14 | Outpatient (REF) | payer OTHER, MEDICAID | LOC: M SFHCPLAZ 19:42 | DX: E21.0 Primary hyperparathyroidism (principal); Z53.8 Procedure and treatment not carried out for other reasons ==

== ENCOUNTER → 2024-05-30 | Outpatient (CLI) | payer OTHER | LOC: M LAB 13:31 | PROVIDERS: ATTEND Otolaryngology | DX: E21.0 Primary hyperparathyroidism (principal) ==

== ENCOUNTER → 2024-06-14 | Outpatient (CLI) | payer OTHER ==
[~2024-06-14] MED LIST changes: +ISOVUE-370 76% 100ML VIAL As Ordered ONE
== END ==
LOC: M RAD 07:38
PROVIDERS: ATTEND Otolaryngology
DX: E21.0 Primary hyperparathyroidism (principal)
CPT/HCPCS: 70492; Q9967

== ENCOUNTER → 2024-12-01 | Outpatient (CLI) | payer OTHER ==
[~2024-12-01] MED LIST changes: +CETI10CH PO; -ISOVUE-370 76% 100ML VIAL As Ordered ONE; +VITA100093 PO
[2024-12-01 12:48] LABS: HEMOGLOBIN 14.2 g/dl (12.0-15.5); MEAN CORPUSCULAR HEMOGLOBIN 30.5 pg (27.0-33.0); MEAN CORPUSCULAR VOLUME 92.5 fl (80.0-96.0); PLATELET COUNT, AUTOMATED 190 10^3/uL (150-450); RED BLOOD COUNT 4.65 10^6/uL (4.00-5.40); WHITE BLOOD COUNT 5.6 10^3/uL (4.0-10.0)
[2024-12-01 13:11] LABS: INR 0.91; PARTIAL THROMBOPLASTIN TIME 24.2 SECONDS (24.8-34.2); PROTHROMBIN TIME 12.5 SECONDS (12.5-14.5)
[2024-12-01 13:16] LABS: ALBUMIN 4.1 G/DL (3.2-5.2); ALKALINE PHOSPHATASE 48 U/L (35-104); ALT/SGPT 13 U/L (7.0-40); AST/SGOT < 8 U/L (<34); BILIRUBIN,TOTAL 0.5 MG/DL (0.3-1.2); BLOOD UREA NITROGEN 12 MG/DL (9-23); CALCIUM LEVEL 9.8 MG/DL (8.5-10.1); CARBON DIOXIDE LEVEL 29 MMOL/L (20-31); CHLORIDE LEVEL 105 MMOL/L (98-107); CREATININE FOR GFR 0.76 MG/DL (0.55-1.30); GLOMERULAR FILTRATION RATE > 90.0 (>60); GLUCOSE, FASTING 95 MG/DL (60-100); SODIUM LEVEL 140 MMOL/L (136-145); TOTAL PROTEIN 7.3 G/DL (5.7-8.2)
== END ==
LOC: M EKG 11:25
PROVIDERS: ATTEND Anesthesiology
DX: Z01.818 Encounter for other preprocedural examination (principal)